=== PATIENT | female | born 1955 | race Caucasian/White ===

== ENCOUNTER 2017-10-13 09:19 | Emergency (ER) | payer MEDICARE ==
[~2017-10-13] VITALS: Ht 167.6 cm; Wt 119.8 kg
[~2017-10-13 09:19] MED LIST: CYCL10 PO; INSDET100 SC; INSUASPI SC; INSULANPEN SC; METF500 PO; NAPR500 PO; OXYACE5T PO; RXCYCL10 PO
[2017-10-13 10:24] LABS: BASOPHILS ABSOLUTE AUTO 0.07 K/mm3 (0.00-0.23); BASOPHILS PERCENT AUTO 1 % (0-2); EOSINOPHILS ABSOLUTE AUTO 0.07 K/mm3 (0.00-0.68); EOSINOPHILS PERCENT AUTO 1 % (0-6); Hematocrit 45.9 % (33.0-51.0); Hemoglobin 14.9 g/dL (11.5-16.0); IMMATURE GRAN ABSOLUTE AUTO 0.02 K/mm3 (0.00-0.10); IMMATURE GRAN PERCENT AUTO 0 % (0-1); LYMPHOCYTES ABSOLUTE AUTO 1.29 K/mm3 (0.84-5.20); LYMPHOCYTES PERCENT AUTO 17 % (21-46); MONOCYTES ABSOLUTE AUTO 0.87 K/mm3 (0.16-1.47); MONOCYTES PERCENT AUTO 11 % (4-13); Mean Corpuscular HGB 28.9 pg (26.0-34.0); Mean Corpuscular HGB Conc 32.5 g/dL (31.5-36.5); Mean Corpuscular Volume 89 fL (80-100); Mean Platelet Volume 10.9 fL (9.1-12.4); NEUTROPHILS ABSOLUTE AUTO 5.39 K/mm3 (1.96-9.15); NEUTROPHILS PERCENT AUTO 70 % (41-73); Platelet Count 220 K/mm3 (150-400); RDW Coefficient Variation 12.9 % (11.7-14.2); RDW Standard Deviation 42.3 fL (35.1-46.3); Red Blood Cell Count 5.15 M/mm3 (3.80-5.20); White Blood Cell Count 7.71 K/mm3 (4.00-11.30)
[2017-10-13 10:49] LABS: Alanine Aminotransfer (ALT/SGP 28 U/L (12-78); Albumin, Blood 3.1 g/dL (3.4-5.0); Albumin/Globulin Ratio 0.7 (0.8-1.8); Alk Phos 100 U/L (50-136); Anion Gap 9 mmol/L (6-16); Aspartate Aminotrans (AST/SGOT 32 U/L (12-37); Bilirubin, Total 0.6 mg/dL (0.1-1.0); Blood Urea Nitrogen 14 mg/dL (8-24); Bun/Creatinine Ratio 27.3 (12.0-20.0); CO2, Blood 25 mmol/L (21-32); Calcium, Blood 8.3 mg/dL (8.5-10.1); Chloride, Blood 99 mmol/L (98-108); Creatinine, Blood 0.51 mg/dL (0.40-1.00); Globulin, Blood 4.3 g/dL (2.2-4.0); Glomerular Filtration Rate >60 (60-); Glucose, Blood 310 mg/dL (70-99); Potassium, Blood 4.6 mmol/L (3.5-5.5); Sodium, Blood 133 mmol/L (136-145); Total Protein, Blood 7.4 g/dL (6.4-8.2); Troponin I <0.015 ng/mL (0.000-0.040)
[2017-10-13] MEDS ORDERED: Duoneb 2.5-0.5 M3 ML INH (13:23)
[2017-10-13] MEDS ORDERED: METPRE4DP PO (13:23)
== END 2017-10-13 13:43 | disposition home or self-care (01) ==
LOC: ER 09:19
PROVIDERS: Emergency Medicine
DX: J45.901 Unspecified asthma with (acute) exacerbation (principal); B34.9 Viral infection, unspecified; E11.9 Type 2 diabetes mellitus without complications; Z88.5 Allergy status to narcotic agent; Z79.899 Other long term (current) drug therapy; Z79.4 Long term (current) use of insulin
CPT/HCPCS: 36415; 71046; 80053; 83880; 84484; 85025; 93005; 93010; 94640; 96374; 99284; J2930

== ENCOUNTER → 2020-04-01 | Outpatient (CLI) | payer MEDICARE ==
[~2020-04-01] MED LIST changes: +Duoneb 2.5-0.5 M3 ML INH; +METPRE4DP PO
== END ==
LOC: PLD 08:05 → LAB SHORT 08:05
DX: L57.0 Actinic keratosis (principal)
CPT/HCPCS: 88305

== ENCOUNTER 2020-08-18 09:12 | Inpatient (IN) | payer MEDICARE ==
[~2020-08-18] VITALS: Ht 167.6 cm; Wt 119.8 kg
[2020-08-18] MEDS ORDERED: LISI20 PO (09:34)
[2020-08-18] MEDS ORDERED: HUMALOG100 UNIT/1 SC (09:35)
[2020-08-18] MEDS ORDERED: VENL75ER PO (09:36)
[2020-08-18] MEDS ORDERED: Aspirin EC81 MG PO (09:37)
[2020-08-18] MEDS ORDERED: BYDUREON B2 MG/0.81 SC (09:37)
[2020-08-18] MEDS ORDERED: Pravachol40 MG PO (09:38)
[2020-08-18 10:06] LABS: BASOPHILS ABSOLUTE AUTO 0.12 K/mm3 (0.00-0.23); BASOPHILS PERCENT AUTO 1 % (0-2); EOSINOPHILS ABSOLUTE AUTO 0.33 K/mm3 (0.00-0.68); EOSINOPHILS PERCENT AUTO 4 % (0-6); Hematocrit 42.6 % (33.0-51.0); Hemoglobin 13.5 g/dL (11.5-16.0); IMMATURE GRAN ABSOLUTE AUTO 0.02 K/mm3 (0.00-0.10); IMMATURE GRAN PERCENT AUTO 0 % (0-1); LYMPHOCYTES ABSOLUTE AUTO 3.13 K/mm3 (0.84-5.20); LYMPHOCYTES PERCENT AUTO 35 % (21-46); MONOCYTES ABSOLUTE AUTO 0.62 K/mm3 (0.16-1.47); MONOCYTES PERCENT AUTO 7 % (4-13); Mean Corpuscular HGB 29.5 pg (26.0-34.0); Mean Corpuscular HGB Conc 31.7 g/dL (31.5-36.5); Mean Corpuscular Volume 93 fL (80-100); Mean Platelet Volume 10.8 fL (9.1-12.4); NEUTROPHILS ABSOLUTE AUTO 4.73 K/mm3 (1.96-9.15); NEUTROPHILS PERCENT AUTO 53 % (41-73); Platelet Count 258 K/mm3 (150-400); RDW Coefficient Variation 12.6 % (11.7-14.2); Red Blood Cell Count 4.58 M/mm3 (3.80-5.20); White Blood Cell Count 8.95 K/mm3 (4.00-11.30)
[2020-08-18 10:29] LABS: Alanine Aminotransfer (ALT/SGP 37 U/L (12-78); Albumin, Blood 2.7 g/dL (3.4-5.0); Albumin/Globulin Ratio 0.7 (0.8-1.8); Alk Phos 94 U/L (50-136); Anion Gap 4 mmol/L (6-16); Aspartate Aminotrans (AST/SGOT 28 U/L (12-37); Bilirubin, Total 0.2 mg/dL (0.1-1.0); Blood Urea Nitrogen 26 mg/dL (8-24); Bun/Creatinine Ratio 33.9 (12.0-20.0); CO2, Blood 30 mmol/L (21-32); Calcium, Blood 8.2 mg/dL (8.5-10.1); Chloride, Blood 106 mmol/L (98-108); Creatinine, Blood 0.77 mg/dL (0.40-1.00); Globulin, Blood 3.8 g/dL (2.2-4.0); Glomerular Filtration Rate >60 (60-); Glucose, Blood 108 mg/dL (70-99); Potassium, Blood 4.5 mmol/L (3.5-5.5); Sodium, Blood 140 mmol/L (136-145); Total Protein, Blood 6.5 g/dL (6.4-8.2); Troponin I <0.015 ng/mL (0.000-0.040)
[2020-08-18] MEDS ORDERED: BASAGLAR K100 UNIT/1 SC (14:22)
[2020-08-18] MEDS ORDERED: IPRAT-ALBUT 0.5-3 ML INH (14:46)
[2020-08-18] MEDS ORDERED: NEURONTIN600 MG PO (16:39)
--- NOTE | 2020-08-18 17:27 | NUR ---
Echocardiogram completed.
--- NOTE | 2020-08-18 18:50 | NUR ---
PT A&O. PT CAME TO FLOOR THIS AFTERNOON FROM ER. PT IS ABLE TO MAKE NEEDS KNOWN. PT CAN TRANSFER SELF FROM BED TO W/C. PT HAD A BKA IN 2014 AND WHEN WEARING PROSTHETIC SHE CAN WALK BUT LEANS ON FUNTURE. LEFT ARM DRIFT, NO OTHER NEURO DEFECIT NOTED. PT HAD AN ELEVATED BP, NOTIFED , IV LOPRESSOR ORDERED AND GIVEN. TELE SR 84. PT ORIENTED TO ROOM AND CALL LIGHT W/IN REACH.
--- NOTE | 2020-08-19 01:17 | NUR ---
patient blood sugar usually covered by 30 units at HS. None ordered. Call placed to hospitalist. awaiting return phone call
--- NOTE | 2020-08-19 04:35 | NUR ---
Patient slept intermittantly through night. No complaints of discomfort with exception of very mild LUQ pain that dissipated without tx. Patient independent in room with use of her personal scooter. She does have mild left upper extremity weakness, and decreased ROM in that extremity. Speech clear, face symetrical A&OX4. NEW ORDER FOR SEMGLEE 30MG AT HS.
[2020-08-19 05:42] LABS: Hematocrit 39.5 % (33.0-51.0); Hemoglobin 12.3 g/dL (11.5-16.0); Mean Corpuscular HGB 29.1 pg (26.0-34.0); Mean Corpuscular HGB Conc 31.1 g/dL (31.5-36.5); Mean Corpuscular Volume 94 fL (80-100); Mean Platelet Volume 11.2 fL (9.1-12.4); Platelet Count 252 K/mm3 (150-400); RDW Coefficient Variation 12.7 % (11.7-14.2); RDW Standard Deviation 43.7 fL (35.1-46.3); Red Blood Cell Count 4.22 M/mm3 (3.80-5.20); White Blood Cell Count 9.01 K/mm3 (4.00-11.30)
[2020-08-19 06:05] LABS: Anion Gap 5 mmol/L (6-16); Blood Urea Nitrogen 24 mg/dL (8-24); Bun/Creatinine Ratio 31.2 (12.0-20.0); CHOL/HDL RATIO 3.8; CO2, Blood 29 mmol/L (21-32); Calcium, Blood 8.1 mg/dL (8.5-10.1); Chloride, Blood 107 mmol/L (98-108); Cholesterol 157 mg/dL (50-200); Creatinine, Blood 0.77 mg/dL (0.40-1.00); Glomerular Filtration Rate >60 (60-); Glucose, Blood 198 mg/dL (70-99); HDL Cholesterol 41 mg/dL (>39); Low Density Lipoprotein Chol 82 mg/dL (0-110); Magnesium, Blood 2.2 mg/dL (1.6-2.4); Potassium, Blood 4.3 mmol/L (3.5-5.5); Sodium, Blood 141 mmol/L (136-145); Triglycerides 169 mg/dL (30-160); Very Low Density Lipoprot Chol 33 mg/dL (6-32)
[2020-08-19] MEDS ORDERED: ATOR80 PO (10:58)
[2020-08-19] MEDS ORDERED: CLOP75 PO (10:59)
--- NOTE | 2020-08-19 11:28 | NUR ---
DISCHARGE INSTRUCTIONS- DISCHARGE INSTRUCTIONS REVIEWED WITH PT. IV DC'D ITNACT. PT ANXIOUS TO GO HOME. PT REPORTS BEING BACK TO BASELINE. RX FAXED TO [facility] APPT MADE WITH PCP AND ATTEMPTED TO CALLED DR [facility], MESSAGE LEFT WITH NO RETURN CALL. PT REPORTS SHE WILL CALL AND GET AN APPT. PT DC'D HOME WITH GRAND DAUGHTER AT 1125. [facility].
== END 2020-08-19 11:26 | disposition home or self-care (01) | DRG 65 ==
LOC: ER 09:12 → MEDS 14:20
PROVIDERS: Nurse Practitioner Acute Care; Physician Assistant; ADMIT Internal Medicine
PROC: 3E0234Z Introduction of Serum, Toxoid and Vaccine into Muscle, Percutaneous Approach (ICD-10-PCS; principal; 2020-08-18)
DX: I63.9 Cerebral infarction, unspecified (principal); G81.94 Hemiplegia, unspecified affecting left nondominant side; Z68.41 Body mass index [BMI] 40.0-44.9, adult; Z23 Encounter for immunization; E66.01 Morbid (severe) obesity due to excess calories; E11.9 Type 2 diabetes mellitus without complications; I65.21 Occlusion and stenosis of right carotid artery; I10 Essential (primary) hypertension; J45.20 Mild intermittent asthma, uncomplicated; F32.9 Major depressive disorder, single episode, unspecified; E78.2 Mixed hyperlipidemia; M19.90 Unspecified osteoarthritis, unspecified site; Z79.4 Long term (current) use of insulin; Z79.82 Long term (current) use of aspirin; Z89.511 Acquired absence of right leg below knee
CPT/HCPCS: 36415; 70450; 70551; 80048; 80053; 80061; 82947; 83036; 83735; 84484; 85025; 85027; 93005; 93010; 93306; 93880; 97161; 97165; 97530; 99285-25; A9270; Q2038

== ENCOUNTER 2021-09-11 18:59 | Emergency (ER) | payer MEDICARE ==
[~2021-09-11] VITALS: Ht 165.1 cm; Wt 117.5 kg
[~2021-09-11 18:59] MED LIST changes: +ATOR80 PO; +Aspirin EC81 MG PO; +BASAGLAR K100 UNIT/1 SC; +BYDUREON B2 MG/0.81 SC; +CLOP75 PO; +HUMALOG100 UNIT/1 SC; +IPRAT-ALBUT 0.5-3 ML INH; +LISI20 PO; +NEURONTIN600 MG PO; +Pravachol40 MG PO; +VENL75ER PO
[2021-09-11] MEDS ORDERED: Tobramycin-Dexam5 ML LEFTEYE (19:58)
[2021-09-11] MEDS ORDERED: ALBU8HFA2 INH (19:58)
[2021-09-11] MEDS ORDERED: AMLO5 PO (19:59)
[2021-09-11 20:23] LABS: BASOPHILS ABSOLUTE AUTO 0.12 K/mm3 (0.00-0.23); BASOPHILS PERCENT AUTO 1 % (0-2); EOSINOPHILS ABSOLUTE AUTO 0.36 K/mm3 (0.00-0.68); EOSINOPHILS PERCENT AUTO 3 % (0-6); Hematocrit 41.5 % (33.0-51.0); Hemoglobin 13.1 g/dL (11.5-16.0); IMMATURE GRAN ABSOLUTE AUTO 0.04 K/mm3 (0.00-0.10); IMMATURE GRAN PERCENT AUTO 0 % (0-1); LYMPHOCYTES ABSOLUTE AUTO 3.55 K/mm3 (0.84-5.20); LYMPHOCYTES PERCENT AUTO 33 % (21-46); MONOCYTES PERCENT AUTO 6 % (4-13); Mean Corpuscular HGB 29.2 pg (26.0-34.0); Mean Corpuscular HGB Conc 31.6 g/dL (31.5-36.5); Mean Corpuscular Volume 93 fL (80-100); Mean Platelet Volume 10.7 fL (9.1-12.4); NEUTROPHILS ABSOLUTE AUTO 6.05 K/mm3 (1.96-9.15); NEUTROPHILS PERCENT AUTO 56 % (41-73); Platelet Count 302 K/mm3 (150-400); RDW Coefficient Variation 13.4 % (11.7-14.2); RDW Standard Deviation 45.7 fL (35.1-46.3); Red Blood Cell Count 4.48 M/mm3 (3.80-5.20); White Blood Cell Count 10.72 K/mm3 (4.00-11.30)
[2021-09-11 20:38] LABS: Albumin, Blood 2.4 g/dL (3.4-5.0); Albumin/Globulin Ratio 0.6 (0.8-1.8); Bilirubin, Total 0.1 mg/dL (0.1-1.0); Bun/Creatinine Ratio 19.7 (12.0-20.0); Calcium, Blood 8.2 mg/dL (8.5-10.1); Creatinine, Blood 1.17 mg/dL (0.40-1.00); Globulin, Blood 3.9 g/dL (2.2-4.0); Potassium, Blood 5.1 mmol/L (3.5-5.5); Total Protein, Blood 6.3 g/dL (6.4-8.2)
[2021-09-11] MEDS ORDERED: Voltaren100 GM TOP (22:17)
== END 2021-09-11 22:40 | disposition home or self-care (01) ==
LOC: ER 18:59
PROVIDERS: Emergency Medicine
DX: M25.512 Pain in left shoulder (principal); I10 Essential (primary) hypertension; E11.9 Type 2 diabetes mellitus without complications; E78.5 Hyperlipidemia, unspecified; E66.9 Obesity, unspecified; J45.909 Unspecified asthma, uncomplicated; M19.90 Unspecified osteoarthritis, unspecified site; Z88.5 Allergy status to narcotic agent; Z79.4 Long term (current) use of insulin; Z79.82 Long term (current) use of aspirin; Z79.84 Long term (current) use of oral hypoglycemic drugs; Z79.899 Other long term (current) drug therapy
CPT/HCPCS: 36415; 80053; 85025; 93005; 93010; 99285-25

== ENCOUNTER 2022-01-08 19:15 | Inpatient (IN) | payer MEDICARE ==
[~2022-01-08] VITALS: Ht 167.6 cm; Wt 118.5 kg
[~2022-01-08 19:15] MED LIST changes: +ALBU8HFA2 INH; +AMLO5 PO; +GABA300 PO; -NEURONTIN600 MG PO; +Tobramycin-Dexam5 ML LEFTEYE; +Voltaren100 GM TOP
[2022-01-08 20:20] LABS: BASOPHILS ABSOLUTE AUTO 0.19 K/mm3 (0.00-0.23); BASOPHILS PERCENT AUTO 2 % (0-2); EOSINOPHILS ABSOLUTE AUTO 0.44 K/mm3 (0.00-0.68); EOSINOPHILS PERCENT AUTO 4 % (0-6); Hematocrit 39.9 % (33.0-51.0); Hemoglobin 12.6 g/dL (11.5-16.0); IMMATURE GRAN ABSOLUTE AUTO 0.04 K/mm3 (0.00-0.10); IMMATURE GRAN PERCENT AUTO 0 % (0-1); LYMPHOCYTES ABSOLUTE AUTO 3.04 K/mm3 (0.84-5.20); LYMPHOCYTES PERCENT AUTO 24 % (21-46); MONOCYTES ABSOLUTE AUTO 0.78 K/mm3 (0.16-1.47); MONOCYTES PERCENT AUTO 6 % (4-13); Mean Corpuscular HGB 29.9 pg (26.0-34.0); Mean Corpuscular HGB Conc 31.6 g/dL (31.5-36.5); Mean Corpuscular Volume 95 fL (80-100); Mean Platelet Volume 10.7 fL (9.1-12.4); NEUTROPHILS ABSOLUTE AUTO 8.02 K/mm3 (1.96-9.15); NEUTROPHILS PERCENT AUTO 64 % (41-73); Platelet Count 321 K/mm3 (150-400); RDW Standard Deviation 48.5 fL (35.1-46.3); Red Blood Cell Count 4.22 M/mm3 (3.80-5.20); White Blood Cell Count 12.51 K/mm3 (4.00-11.30)
[2022-01-08 20:38] LABS: Albumin, Blood 2.1 g/dL (3.4-5.0); Albumin/Globulin Ratio 0.5 (0.8-1.8); Bilirubin, Total 0.2 mg/dL (0.1-1.0); Bun/Creatinine Ratio 12.6 (12.0-20.0); Calcium, Blood 8.3 mg/dL (8.5-10.1); Creatinine, Blood 1.27 mg/dL (0.40-1.00); Globulin, Blood 4.2 g/dL (2.2-4.0); Potassium, Blood 4.3 mmol/L (3.5-5.5); Total Protein, Blood 6.3 g/dL (6.4-8.2)
[2022-01-08] MEDS ORDERED: ZESTRIL40 M1 PO (21:12)
[2022-01-08] MEDS ORDERED: JARDIANCE25 MG PO (21:13)
[2022-01-08] MEDS ORDERED: METFORMIN HCL500 M3 PO (21:13)
[2022-01-08 21:21] LABS: Source, Urine Clean Catch
[2022-01-08 21:28] LABS: Appearance, Urine Clear (Clear); Bilirubin, Urine Neg (Neg); Blood, Urine 2+ (Neg); Color, Urine Yellow (P-Yellow); Glucose Qualitative, Urine 3+ (Neg); Ketones, Urine Neg (Neg); Leukocyte Esterase, Urine Neg (Neg); Nitrite, Urine Neg (Neg); Protein, Urine 4+ (Neg); Urobilinogen, Urine NORM (Normal)
[2022-01-08 21:38] LABS: Amorphous Light (0-Heavy); Bacteria Few /hpf; Squamous Epithelial Cells Few /hpf (Few)
[2022-01-08 23:21] LABS: International Normalized Ratio 0.94; Prothrombin Time Results 9.9 Sec (9.7-11.5)
--- NOTE | 2022-01-09 00:31 | NUR ---
PT ARRIVES FROM ED AT 2350. PT ABLE TO WALK TO BED WITH 1 PERSON ASSISTANCE. DAUGHTER AND GRANDDAUGHTER WITH PT UPON ARRIVIAL. CALL LIGHT WITHIN REACH, BED LOW AND LOCKED
--- NOTE | 2022-01-09 01:23 | NUR ---
UPON ADMISSION PT BP WAS 232/115. HYDRALAZINE GIVEN. REASSESSED AT 113 AND BP WAS 205/70.
--- NOTE | 2022-01-09 06:46 | NUR ---
PT IS ALERT, ORIENTED TO PLACE, SELF AND SITUATION ONLY, UNABLE TO STATE CORRECT DAY OR MONTH. 1 PERSON ASSIST TO BR USING PERSONAL SCOOTER. RIGHT BKA, HAS DEVICE IN ROOM. ARRIVES FROM THE ED TO THE FLOOR DURING THE NIGHT FOR A RECENT CVA, LKW WAS 6/2. BP ELEVATED SBP >180, PRN HYDRALAZINE GIVEN. PT RESTS 5+ HOURS. PLEASANT WITH CARES. AT 0600 PT WOKE AND WAS CONFUSED, UNABLE TO STATE WHY THEY WERE HERE, REQUIRED PROMPTING WHEN ASKED DATE AND SITUATION. NO COMPLAINTS OF TIWARI OR OTHER PAIN. WILL CONTINUE TO MONITOR PT AND GIVE REPORT TO ONCOMING NURSE
--- NOTE | 2022-01-09 18:27 | NUR ---
SHIFT SUMMARY: PT LETHARGIC, ORIENTED TO SELF, PLACE, YEAR THIS MORNING. MENTATION SEEMS TO IMPROVE T/OUT DAY WITH PT ABLE TO RECALL WHY SHE IS IN HOSPITAL WELL HER MEDICAL HISTORY. PT SHIVERS OCCASIONALLY, REPORTS FEELING "CHILLED", MILD L SIDE WEAKNESS NOTED. PT MAINTAINS O2 SATS >95% WHILE AWAKE, DESATS DURING SLEEP, O2 AT 2L/MIN VIA NC. SR ON MONITOR. HTN CONTINUES T/OUT DAY DESPITE PRN HYDRALAZINE, DR STOCKTON NOTIFIED, NEW ORDERS PLACED AND PT MEDICATED. ECHO COMPLETED TODAY AT BEDSIDE. CURRENTLY, PT RESTING QUIETLY IN ROOM W/FAMILY AT BEDSIDE. WILL CONTINUE TO MONITOR AND TREAT ACCORDINGLY UNTIL CHANGE OF SHIFT.
--- NOTE | 2022-01-09 21:32 | NUR ---
Assumed care 1900: VSS on RA, elevated BP and scheduled meds given. Cbg 232, long acting insulin given. Will continue to monitor.
--- NOTE | 2022-01-09 23:29 | NUR ---
SBP >180, PRN HYDRALAZINE GIVEN PO.
--- NOTE | 2022-01-10 03:44 | NUR ---
SBP remains above 180 even after the prn PO MD yogi notified. Order added for lobetalol prn, will give once pharmacy verifies.
--- NOTE | 2022-01-10 04:35 | NUR ---
Professional Athlete Note: Pt oriented x 2-3, disoriented to situation. VSS on RA, pt SBP elevated overnight. PRN hydralazine PO given x1 and Labetalol IV given x1 with some effect. Pt slept well overnight. Some residual left sided weakness from stroke in August 2020. CBG 232, long acting insulin given per orders.
[2022-01-10 05:40] LABS: Bun/Creatinine Ratio 14.5 (12.0-20.0); Calcium, Blood 8.2 mg/dL (8.5-10.1); Creatinine, Blood 1.86 mg/dL (0.40-1.00); Potassium, Blood 4.8 mmol/L (3.5-5.5)
--- NOTE | 2022-01-10 18:01 | NUR ---
SHIFT SUMMARY: PT SLEEPS OFTEN TODAY, ORIENTED x2-3, CONTINUES DISORIENTED TO SITUATION. O2 SATS MAINTAINED >92% ON RA EVEN WHILE SLEEPING. SR ON MONITOR. ONE PRN DOSE HYDRALAZINE GIVEN, SBP TRENDS DOWN T/OUT DAY. FAMILY AT BEDSIDE, UPDATED ON PT CONDITION AND PLAN OF CARE, ALL QUESTIONS ANSWERED. PT CONTINENT AND ABLE TO VERBALIZE NEEDS R/T TOILETING, SBA TO BSC, TOLERATING WELL. PT WITH MINIMAL PO TAKE FOR BREAKFAST AND LUNCH, CURRENTLY ALERT AND EATING DINNER TRAY. WILL CONTINUE TO MONITOR AND TREAT ACCORDINGLY UNTIL CHANGE OF SHIFT.
--- NOTE | 2022-01-10 20:47 | NUR ---
Assumed care 1899. VSS on RA. Tele: SR 70s. Pt pretty sleepy/drowsy, but wakes up easily when you talk with her. Took meds whole w/ water no issues. CBG low 200s, glargine given per order. Right AC PIV flushing well.
--- NOTE | 2022-01-10 21:15 | NUR ---
Report given to Nicole ERAZO, pt will be transferred to medical floor.
[2022-01-11 08:29] LABS: Bun/Creatinine Ratio 18.2 (12.0-20.0); Calcium, Blood 8.2 mg/dL (8.5-10.1); Creatinine, Blood 1.7 mg/dL (0.40-1.00); Potassium, Blood 4.9 mmol/L (3.5-5.5)
--- NOTE | 2022-01-11 19:28 | NUR ---
SHIFT SUMMARY PATIENT VERY SLEEPY T/O SHIFT ONLY WAKING TO VERBAL STIMULI. FAMILY AT BEDSIDE MOST OF SHIFT. PUREWICK IN PLACE TO SUCTION. NOTED REDNESS/YEAST UNDER PANNUS. MEDICATED PER OCT. ELEVATED BP, MEDICATED PER OCT. OTHER VITAL SIGNS STABLE. PT HAD BRIEF EMOTIONAL EPISODE WHEN ASKING FAMILY FOR AND REALIZING HE HAD PASSED 10 YRS AGO. REPORT GIVEN TO ONCOMING RN,
--- NOTE | 2022-01-12 05:57 | NUR ---
SHIFT SUMMARY A/O 2-3, FORGETFUL. DENIES PAIN OR SOB. CONT/INCONT, ATTENDS AND PUREWICK IN PLACE. R. BKA. VSS, NO ACUTE CHANGES AT THIS TIME. BED IN LOWEST POSITION WITH CALL LIGHT IN REACH. WILL CONTINUE TO MONITOR AND REPORT TO ONCOMING RN.
[2022-01-12 06:41] LABS: Bun/Creatinine Ratio 23.2 (12.0-20.0); Calcium, Blood 8.3 mg/dL (8.5-10.1); Creatinine, Blood 1.77 mg/dL (0.40-1.00); Potassium, Blood 5.2 mmol/L (3.5-5.5)
--- NOTE | 2022-01-12 10:29 | NUR ---
MD CALL PT SITTING OUT IN THE CHAIR (PT HELPED HER). SLOUCHED, SHE WAS ABLE TO MUTTER VERY QUIETLY HER NAME, BUT NO OTHER VERBAL RESPONSES. NOT TAKING A DEEP BREATH WHEN I ASKED HER TO, NOT SMILING WHEN I ASKED HER. SHE DID MOVE HER RIGHT THUMB WHEN I ASKED HER TO SQUEEZE MY HANDS, DID NOT MOVE THE LEFT HAND AT ALL OR THE LEFT LEG. NOT TRACKING MY FINGER WHEN PROMPTED. HER COUSIN IS IN THE ROOM WITH HER AND SAID THAT THESE ARE NEW CHANGES, THAT SHE IS NOT RESPONSIVE SHE HAS BEEN. I CALLED AND SPOKE WITH DR STOCKTON WHO SAID THAT SHE CAN BE SLOW TO RESPOND AND CAN SOMETIMES BECOME MORE RESPONSIVE AFTER A WHILE, TO REASSESS HER IN 15 MINS.
--- NOTE | 2022-01-12 11:17 | NUR ---
REASSESSMENT WORKED WITH THERAPIST TO GET PT BACK INTO BED. PT WAS MORE VERBAL, MOVING MORE AT THIS TIME. HEAVY TRANSFER, BUT PT STATING SOME CLEAR WORDS AND MOVING BOTH ARMS, ABLE TO PUT SOME WT ON HER FOOT TO PIVOT.
--- NOTE | 2022-01-12 19:03 | NUR ---
SHIFT SUMMARY SEE THIS AM NOTE FOR DETAILS OF CHANGE IN MENTAL STATUS THAT HAPPENED THIS MORNING. AFTER THAT EVENT MS CAI HAS BEEN MORE RESPONSIVE, BUT IS INCONSISTANT IN HER RESPONSIVENESS. HER FAMILY HAS BEEN WITH HER ALL DAY AND THEY TOLD ME THAT SHE HAS BEEN ENGAGED WITH THEM ON AND OFF THROUGHOUT THE REST OF THE DAY. ON TELEMETRY - SR PER LAST POSTED STRIP AND NO CALLS FROM MOSAIC TECHNICIAN TODAY. NO SOB OR RESP DISTRESS ON ROOM AIR. C/O LEFT ARM TENDERNESS ON MOVEMENT, NO BLOOD PRESSURES IN LEFT ARM. SKIN RED RASH UNDER BREASTS AND PANIS - CLEANSED AND CREAM APPLIED PRESCRIBED. BED LOW, CALL LIGHT IN REACH.
--- NOTE | 2022-01-13 02:14 | NUR ---
PT AWAKE, DENIES REQUESTS. PT REPORTS SHE IS COMFORTABLE, REFUSING REPOSITIONING. CALL LIGHT WITHIN REACH. BED IN LOW POSITION. FLUIDS AT BEDSIDE.
[2022-01-13 06:09] LABS: Bun/Creatinine Ratio 26.9 (12.0-20.0); Calcium, Blood 8.4 mg/dL (8.5-10.1); Creatinine, Blood 1.82 mg/dL (0.40-1.00); Potassium, Blood 5.7 mmol/L (3.5-5.5)
--- NOTE | 2022-01-13 07:25 | NUR ---
SHIFT SUMMARY - NO ACUTE CHANGES THROUGHOUT THIS SHIFT. NO CHANGES FOR NEURO CHECKS FROM BEGINNING OF THE SHIFT ASSESSMENT. PT TOLERATED PO FLUIDS/PILLS WITHOUT COMPLICATIONS - HOB ELEVATED. PT HAS BEEN SLEEPING THROUGHOUT MOST OF THE NIGHT - PT AWAKENS EASILY TO VERBAL COMMUNICATION. PT DENIED ANY PAIN THROUGHOUT THE NIGHT. PT HAS BEEN RESPONDING APPROPRIATELY TO QUESTIONS ASKED. FLUIDS AT BEDSIDE. CALL LIGHT WITHIN REACH. BED IN LOW POSITION.
[2022-01-13 12:37] LABS: Bun/Creatinine Ratio 24.9 (12.0-20.0); Calcium, Blood 8.4 mg/dL (8.5-10.1); Creatinine, Blood 1.77 mg/dL (0.40-1.00); Potassium, Blood 5.2 mmol/L (3.5-5.5)
--- NOTE | 2022-01-13 18:57 | NUR ---
SHFIT SUMMARY 66 Y MALE ADMITTED FOR CVA. PT HAS HAD L SIDED WEAKNESS THAT IS IMPROVING. PT WORKED WITH PT AND OT AND TOLERATED WELL. PT DOES HAVE MX AREAS OF REDNESS IN PANNUS, SKIN FOLDS AND UNDER BREAST. FAMILY HAS BEEN PRESENT T/O DAY. PT IS ALERT AND ORIENTED TO SELF AND FAMILY. SHE DOES APPEAR TO HAVE SOME EXPRESSIVE APHASIA AND IS SLOW TO RESPOND. PT IS ABLE TO FOLLOW DIRECTIONS BUT IS SLOW. D/C PLANS INCLUDE SNF PALCEMENT
[2022-01-14 06:16] LABS: Bun/Creatinine Ratio 28.1 (12.0-20.0); Calcium, Blood 8.7 mg/dL (8.5-10.1); Creatinine, Blood 1.6 mg/dL (0.40-1.00); Potassium, Blood 5.2 mmol/L (3.5-5.5)
--- NOTE | 2022-01-14 08:04 | NUR ---
PT ALERT TO SELF AND PLACE, VERY SLOW TO RESPOND AND AT TIMES HAS A HARD TIME FINDING WORDS. NO NEW CONCERNS OVERNIGHT.
--- NOTE | 2022-01-14 08:07 | NUR ---
PT ALERT TO SELF AND PLACE. PRIOR TO PT BEING TRANSFERED PER REPORT PT HAD PULLED SOME OF THE CATH OUT. CAN INSPECTOR TO ASSESS PRIOR TO PT TRASNFERING TO MEDICAL. PT MONITORED FREQUENTLY HOWEVER NOTED TO HAVE PULLED HALF OF THE DRESSING OFF WHILE ON MEDICAL FLOOR. LINE UNCHANGED FROM PREVIOUS ASSESSMENT. DUE TO HIGH RISK OF PT PULLING PERMA CATH RESTRAINTS ORDERED PER MD. PT BLOOD GUCOSE 86 AT 0420. INCONTINENT OF URINE X1. NO NEW CHANGES NOTED THIS SHIFT.
--- NOTE | 2022-01-14 19:22 | NUR ---
SHIFT SUMMARY PATIENT A&O TO SELF AND FAMILY. PATIENT FLAT AFFECT AND SLOW TO RESPOND. FAMILY AT BEDSIDE MOST OF SHIFT. PT WORKED WITH PATIENT THIS AM AND GOT HER UP TO CHAIR. ATTEMPTED TO GET PATIENT INTO SHOWER. UNABLE TO GET OVER STEP AND BED BATH DONE INSTEAD. RED, YEAST RASH UNDER BREASTS/PANNUS, MEDICATED CREAM APPLIED PER OCT. ELEVATED BP, MEDICATED PER OCT. PUREWICK IN PLACE AND DRAINING TO SUCTION. REPORT GIVEN TO ONCOMING RN.
--- NOTE | 2022-01-15 08:43 | NUR ---
PT ABLE TO REST OVERNIGHT. TURNED Q2H TO BEST OF STAFF AVAILABILITY PER FAMILY REQUEST. NO NEW CONCERNS OVERNIGHT.
--- NOTE | 2022-01-15 18:34 | NUR ---
SHIFT SUMMARY PATIENT A&O TO SELF AND FAMILY. SAT UP ON EDGE OF BED FOR ALL MEALS. RED/YEAST RASH UNDER PANNUS/BREAST, NYSTATIN CREAM APPLIED. IV AND TELE D/C'D TODAY. PUREWICK IN PLACE TO SUCTION. NO SIGNIFICANT EVENTS T/O SHIFT. WILL CONTINUE TO MONITOR.
--- NOTE | 2022-01-16 07:34 | NUR ---
PT WITH NO COMPLAINS OVENIGHT. ABLE TO STAND PIVOT TO COMMODE. BLOOD GLUCOSE MONITORED. VOIDING WITHOUT DIFFICULTY.
--- NOTE | 2022-01-16 18:45 | NUR ---
SHIFT SUMMARY PATIENT A&O TO SELF AND FAMILY. PATIENT VERY SLEEPY TODAY SLEEPING MOST OF AFTERNOON. FAMILY AT BEDSIDE T/O SHIFT. NO SIGNIFICANT EVENTS. WILL CONTINUE TO MONITOR.
[2022-01-17 04:29] LABS: Hematocrit 33.7 % (33.0-51.0); Hemoglobin 10.5 g/dL (11.5-16.0); Mean Corpuscular HGB 29.2 pg (26.0-34.0); Mean Corpuscular HGB Conc 31.2 g/dL (31.5-36.5); Mean Corpuscular Volume 94 fL (80-100); Mean Platelet Volume 11.2 fL (9.1-12.4); Platelet Count 318 K/mm3 (150-400); RDW Coefficient Variation 13.4 % (11.7-14.2); RDW Standard Deviation 45.9 fL (35.1-46.3); White Blood Cell Count 10.37 K/mm3 (4.00-11.30)
[2022-01-17 04:55] LABS: Bun/Creatinine Ratio 30.6 (12.0-20.0); Calcium, Blood 8.7 mg/dL (8.5-10.1); Creatinine, Blood 1.6 mg/dL (0.40-1.00); Potassium, Blood 5.3 mmol/L (3.5-5.5)
--- NOTE | 2022-01-17 19:05 | NUR ---
PATIENT A/O TO SELF AND FAMILY ONLY. VSS, ON RA. UP TO CHAIR AND BSC THIS SHIFT. PURE WICK REMOVED AND PATIENT HAS BEEN CONTINENT. R BKA AND HAS PROSTHETIC, BUT R LEG HAS SOME SWELLING SO IT ISN'T FITTING WELL. FAMILY AT BEDSIDE FOR MOSET OF THE DAY. NYSTATIN CREAM APPLIED TO YEAST RASH IN FOLD. POOR APPEITE, BUT IS ABLE TO FEED HERSELF AFTER MMEAL SET UP. FALL PRECAUTIONS IN PLACE. REPORTS PAIN TO L ARM, DENIES NEED FOR PAIN MEDICATION. COOPERATIVE WITH CARE. NO NEW CONCERNS THIS SHIFT.
--- NOTE | 2022-01-18 17:37 | NUR ---
PATIENT AWAKE THIS AM AND WORKED WITH OT. UP IN CHAIR FOR MOST OF THE MORNING. ABLE TO TRANSFER WITH PROTHETIC LEG AND 1-2 ASSIST TO CHAIR/BSC. FAMILY AT BEDSIDE DURING THE DAY AT ALL TIMES AND ASSISTS WITH CARE. TOLERARING DIET, TAKES PILLS WELL WITH WATER. CONTINENT/INCONTINENT OF URINE. NYSTATIN ORDERED TO TREAT YEAST RASH TO ABDOMINAL FOLDS. AWAITING PLAN FOR DISCHARGE.
--- NOTE | 2022-01-19 01:00 | NUR ---
PT AWAKE RESTING QUIETLY IN BED. DENIES ANY REQUESTS. CALL LIGHT WITHIN REACH. BED IN LOW POSITION.
--- NOTE | 2022-01-19 06:33 | NUR ---
SHIFT SUMMARY - FAMILY WAS HERE AT THE BEGINNING OF THE SHIFT. PT WAS SITTING IN THE CHAIR X1, AND THEN BSC X1. PT WAS ABLE TO STAND AND PIVOT WITH SBA TO BED. NO ACUTE CHANGES THROUGHOUT THIS SHIFT. LS CLEAR WITH RHONCHI TO BILATERAL BASES. PT DENIED HEADACHE, CHEST PAIN, SOB, NAUSEA, OR NUMBNESS AND TINGLING. PT HAS A PROSTHETIC FOR HER R BKA THAT SHE WORE UNTIL APPX 8 PM LAST NOC - ONCE BACK TO BED THIS PROSTHETIC WAS REMOVED BY FAMILY. CALL LIGHT WITHIN REACH. BED IN LOW POSITION. FLUIDS AT BEDSIDE. WILL CONTINUE TO MONITOR UNTIL AM SHIFT CHANGE.
--- NOTE | 2022-01-19 19:30 | NUR ---
SHIFT SUMMARY- PT ALERT AND ORIENTED TO SELF AND FAMILY. PT PLEASENTLY CONFUSED, HER FAMILY REMAIN AT THE BEDSIDE TO REORIENT THE PT NEEDED AND THEY PROVIDE CARE FOR HER WELL. FAMILY ASSISTED THE PT TO GET A SHOWER TODAY, WITH THE HELP OF THERAPY AND THE [facility]. PT HAS YEAST IN HER PANNUS MEDICATING WITH NYSTATIN CREAM, ALSO SHE HAS YEAST IN THE LEFT ARM PIT, THIS WAS CLEANED AND DRIED AND MEDICATED WELL. PT HAD ONE EPISODE OF INCONTINENCE TODAY THAT REQUIRED A BED CHANGE. PT FAMILY KEEPS THE ATTENDS OFF T/O THE DAY AND THEY ASSIST HER WITH BATHROOM NEEDS. PT HAS MORE NIGHT TIME INCONTINENCE. NIGHT RN IS AWARE, PASSED ALL ON IN BEDSIDE REPORT. PT IN BED, CALL LIGHT IN REACH, BED IN LOW POSITION.
[2022-01-20 05:13] LABS: Hematocrit 32.5 % (33.0-51.0); Hemoglobin 10.1 g/dL (11.5-16.0); Mean Corpuscular HGB 29.6 pg (26.0-34.0); Mean Corpuscular HGB Conc 31.1 g/dL (31.5-36.5); Mean Corpuscular Volume 95 fL (80-100); Mean Platelet Volume 11.5 fL (9.1-12.4); Platelet Count 322 K/mm3 (150-400); RDW Coefficient Variation 13.4 % (11.7-14.2); RDW Standard Deviation 47.5 fL (35.1-46.3); Red Blood Cell Count 3.41 M/mm3 (3.80-5.20); White Blood Cell Count 8.13 K/mm3 (4.00-11.30)
--- NOTE | 2022-01-20 05:19 | NUR ---
PATIENT WITH VSS ON RA OVERNIGHT. sKIN INSPECTION REVEALS HEALING YEAST IN ABDOMINAL FOLDS. PATIENT INCONTINENT OF URINE OVERNIGHT. PATIENT SLEPT THE MAJORITY OF THE NIGHT. NO ACUTE ISSUES OVERNIGHT.
[2022-01-20 05:40] LABS: Bun/Creatinine Ratio 32.2 (12.0-20.0); Calcium, Blood 8.4 mg/dL (8.5-10.1); Creatinine, Blood 1.71 mg/dL (0.40-1.00); Potassium, Blood 5.3 mmol/L (3.5-5.5)
--- NOTE | 2022-01-20 20:06 | NUR ---
SHIFT SUMMARY- PT ALERT AND ORIENTED TO SELF AND FAMILY. PT FAMILY HAS REMAINED AT BEDSIDE T/O THE DAY ASSISTING THE PT WITH HER NEEDS T/O THE DAY. CURRENTLY THE PLAN IS SNF VS HOME HEALTH UPON DISCHARGE. FAMILY IS AWARE AND ARE PATINETLY AWAITING THE DECISION. BEDSIDE REPORT COMPLETED WITH NIGHT RN, NO S&S OF DISTRESS, FAMILY AT THE BEDSIDE AT THE TIME OF REPORT.
--- NOTE | 2022-01-21 04:23 | NUR ---
SHIFT SUMMARY: CONTINED CONFUSION, DISORIENTED TO TIME, DATE AND SITUATION. PATIENT FAMILIAR WITH FAMILY AND SELF. STANDBY ASSIST FOR TRANSFER TO MOTORIZED WHEELCHAIR. REORIENTATION AND EDUCATION PROVIDED. NO COMPLAINTS OF PAIN OR DISCOMFORT THROUGHOUT THE NIGHT. BED ALARM REMAINS ACTIVATED, BED IN LOW POSITION AND CALL DA SILVA IN REACH.
[2022-01-21 12:30] LABS: Influenza A, PCR NEGATIVE (NEGATIVE); Influenza B, PCR NEGATIVE (NEGATIVE); Resp Syncytial Virus, PCR NEGATIVE (NEGATIVE)
[2022-01-21 12:31] LABS: SARS-Cov-2 (COVID-19) PCR, MMC POSITIVE (NEGATIVE)
--- NOTE | 2022-01-21 19:15 | NUR ---
SHIFT SUMMARY- PT HAS SEEMED FAR MORE LETHARGIC TODAY. SHE IS ALERT TO SELF AND FAMILY. PT HAS BEEN LESS WILLING TO GET UP TO THE CHAIR, SHE HAS DECLINED MEALS, AND DECLINED TO INTERACT WITH STAFF SHE HAS IN PRIOR SHIFTS. NOTED A SLIGHT DRY OCCASSIONAL COUGH THIS EVENING. PLAN WAS FOR THE PT TO DC TO SNF, COVID TEST PRIOR TO DISCHARGE CAME BACK POSSITIVE. SPOKE TO THE FAMILY AND INSISTED THEY PUT ON A MASK IN THE ROOM AT ALL TIMES. SUGGESTED THEY TAKE THE CHILDREN HOME, AND (AFTER TALKING WITH THE NURSING AUDITING CONTROL CLERK) TOLD THEM TO TRY TO LIMIT EXPOSURE BY REDUCING DAILY VISITORS TO 2. VISITORS SHOULD WEAR GOWN, GLOVES AND MASK. REPORT COMPLETED WITH NIGHT RN, FAMILY WAS STILL AT THE BEDSIDE AT THE TIME OF REPORT. PT HAS NO S&S OF DISTRESS AND APPEARS TO BE RESTING COMFORTABLY AT THIS TIME.
--- NOTE | 2022-01-22 03:59 | NUR ---
PATIENT WITH HTN OVERNIGHT. MEDICATED PER OCT. INCONTINENT OF URINE. YEAST IN GROIN. PATIENT ALERT AND CONVERSIVE. REMAINS ON RA WITH LUNGS CTA OVERNIGHT. NO ACUTE EVETNS TONIGHT.
--- NOTE | 2022-01-22 18:06 | NUR ---
SHIFT SUMMARY PT A&O X1-2 T/O SHIFT. PT FAMILY/FRIEND @ BEDSIDE T/O SHIFT. REQUESTING PURE WIC T/O NIGHT FOR SKIN INTEGRITY. PAIN MEDICATED PER EMAR. RA. HPTN NOTED AND MEDICATED PER EMAR. 2X MAX ASSIST. UP TO CHAIR AND BSC T/O SHIFT. CALL LIGHT W/IN REACH. TOLERATING PO INTAKE. APPEARS VERY DROWSY T/O SHIFT. WORKED W/ PHYSICAL THERAPY.
--- NOTE | 2022-01-23 05:39 | NUR ---
PT SLEEPY THIS SHIFT BUT AWAKENS TO CONVERSATION, PURWICK ATTEMPTED BUT BECAME DISLODGED, ATTENDS CHANGED. RBKA, PROSTESIS IN ROOM. D/C TO [facility] WHEN COVID ISOLATION COMPLETE.
[2022-01-23 09:46] LABS: Albumin, Blood 1.9 g/dL (3.4-5.0); Anion Gap 5 mmol/L (6-16); Blood Urea Nitrogen 44 mg/dL (8-24); CO2, Blood 26 mmol/L (21-32); Calcium, Blood 8.2 mg/dL (8.5-10.1); Chloride, Blood 109 mmol/L (98-108); Creatinine, Blood 1.69 mg/dL (0.40-1.00); Glomerular Filtration Rate 33 (60-); Glucose, Blood 148 mg/dL (70-99); Phosphorus, Blood 4.7 mg/dL (2.5-4.9); Sodium, Blood 140 mmol/L (136-145)
--- NOTE | 2022-01-23 18:56 | NUR ---
SHIFT SUMMARY PT A&O X3 AND IN PLEASENT MOOD T/O SHIFT. APPEARS DROWSY. DAUGHTER @ BEDSIDE T/O SHIFT AND ABLE TO ASSIST W/ CARE. BED BATH PROVIDED THIS SHIFT. HTN NOTED. UP TO BEDSIDE COMODE. CALL LIGHT W/IN REACH. TOLERATING PO INTAKE WELL. COVID +, WAITING REHAB.
--- NOTE | 2022-01-24 05:48 | NUR ---
PT IS PLEASANT, CONFUSED, ASHLI PLACED THIS SHIFT, PARTIALLY EFFECTIVE, PT IS INCONTINENT. CB AC. PT IS TO D/C TO [facility] WHEN COVID ISOLATION IS FINISHED.
--- NOTE | 2022-01-24 19:45 | NUR ---
SHIFT SUMMARY- PT ALERT AND ORIENTED TO SELF AND FAMILY, FREQUENT REORIENTATION IS NEEDED WHEN STAFF ARE WORKING WITH HER SHE HAS DIFFICULTY WITH SHORT TERM MEMORY. PT FAMILY IS AT THE BEDSIDE T/O THE DAY AND THEY LEAVE FOR THE NIGHT. PT USES A PURWICK CATH AT NIGHT, FAMILY ASSISTS WITH ALL ADLS DURING THE DAY. PT IS A FALL RISK AND BED ALARM IS SET FOR PT SAFETY. PT IN BED, NO S&S OF DISTRESS, CALL LIGHT IN REACH NO S&S OF DISTRESS. NIGHT RN ASSUMED CARE AFTER REPORT WAS COMPLETED.
--- NOTE | 2022-01-25 06:32 | NUR ---
66 year old PTb appears older than actual age had CVA with weakness & fatique was to be dc to skilled rehab when tested positive for covid 19. PT is on room air & has a nonpod occ loose cough. Incontinent of large amt of urine this AM. HAs used purewick at HS in past. Does not call for assist, confused & needs extensive assist for adls toileting & needs to have rehab on dc. Family assists with cares during day.
--- NOTE | 2022-01-26 04:41 | NUR ---
66 year old PT with subacute ischemic stroke & prior old chronic strokes continues confused & needing extensive assist with ADLS. PT was planning on SNF rehab post CVA but tested positive for covid 19 & facility unable to take PT. She has suppoertive family who come in daily to assist in caring for PT. She is on room air & has occ nonprod cough. Has old RT BKA & she is up to chair or BSC with rt prosthesis on & used FWW. Planning home with home health & assist of Family members.
[2022-01-26] MEDS ORDERED: HYDRA25 PO (11:19)
[2022-01-26] MEDS ORDERED: CATAPRES0.2 M1 PO (11:19)
[2022-01-26] MEDS ORDERED: ELIQUIS5 M2 PO (11:19)
[2022-01-26] MEDS ORDERED: ACET325 PO (11:19)
[2022-01-26] MEDS ORDERED: HUMALOG JU100 UNIT/2 SC (11:21)
[2022-01-26] MEDS ORDERED: NYSTATIN15 GM TOP (11:21)
[2022-01-26] MEDS ORDERED: METO50 PO (11:21)
[2022-01-26] MEDS ORDERED: MIRALAX17 GM PO (11:22)
== END 2022-01-26 13:10 | disposition home health service (06) | DRG 64 ==
LOC: ER 19:15 → MEDS 23:29 → PCU 23:29 → MEDS 01-10 21:25
PROVIDERS: Internal Medicine; Physician Assistant; Student in an Organized Health Care Education/Training Program; ADMIT Internal Medicine
PROC: 8E0ZXY6 Isolation (ICD-10-PCS; principal; 2022-01-08)
DX: I63.432 Cerebral infarction due to embolism of left posterior cerebral artery (principal); U07.1 COVID-19; Z68.41 Body mass index [BMI] 40.0-44.9, adult; J45.21 Mild intermittent asthma with (acute) exacerbation; N17.9 Acute kidney failure, unspecified; G93.49 Other encephalopathy; F32.A Depression, unspecified; E78.5 Hyperlipidemia, unspecified; E66.01 Morbid (severe) obesity due to excess calories; M19.90 Unspecified osteoarthritis, unspecified site; E11.621 Type 2 diabetes mellitus with foot ulcer; L97.519 Non-pressure chronic ulcer of other part of right foot with unspecified severity; M25.512 Pain in left shoulder; I12.9 Hypertensive chronic kidney disease with stage 1 through stage 4 chronic kidney disease, or unspecified chronic kidney disease; N18.30 Chronic kidney disease, stage 3 unspecified; E11.22 Type 2 diabetes mellitus with diabetic chronic kidney disease; M77.8 Other enthesopathies, not elsewhere classified; F01.50 Vascular dementia, unspecified severity, without behavioral disturbance, psychotic disturbance, mood disturbance, and anxiety; Z90.710 Acquired absence of both cervix and uterus; Z89.511 Acquired absence of right leg below knee; Z88.5 Allergy status to narcotic agent; Z79.4 Long term (current) use of insulin; Z79.82 Long term (current) use of aspirin; Z79.899 Other long term (current) drug therapy
CPT/HCPCS: 0241U; 36415; 70450; 70551; 80048; 80053; 80069; 81001; 82947; 85025; 85027; 85610; 85730; 86850; 86900; 86901; 92610; 93005; 93010; 93306; 93880; 94760; 97110; 97129; 97130; 97161; 97164; 97166; 97530; 97535; 99285-25; A9270; J1815; J2405; J7120

== ENCOUNTER → 2022-02-11 | Outpatient (CLI) | payer MEDICARE ==
[~2022-02-11] MED LIST changes: +ACET325 PO; +C COMPLEX1000 M1 PO; +CATAPRES0.2 M1 PO; +CIPR500 PO; +ELIQUIS5 M2 PO; +FERSU300 PO; +FURO80 PO; +HUMALOG JU100 UNIT/2 SC; +HYDRA25 PO; +JARDIANCE25 MG PO; +METFORMIN HCL500 M3 PO; +METO50 PO; +MIRALAX17 GM PO; +NYSTATIN15 GM TOP; +Promod946 ML PO; +ZESTRIL40 M1 PO
== END | disposition home or self-care (01) ==
LOC: LAB SHORT 14:50 → LAB 14:50
DX: R41.82 Altered mental status, unspecified (principal)
CPT/HCPCS: 87086

== ENCOUNTER 2022-02-16 18:01 | Emergency (ER) | payer MEDICARE ==
[~2022-02-16] VITALS: Ht 167.6 cm; Wt 113.4 kg
[~2022-02-16 18:01] MED LIST changes: -C COMPLEX1000 M1 PO; -CIPR500 PO; -FERSU300 PO; -FURO80 PO; -Promod946 ML PO
[2022-02-16 18:57] LABS: BASOPHILS ABSOLUTE AUTO 0.14 K/mm3 (0.00-0.23); BASOPHILS PERCENT AUTO 2 % (0-2); EOSINOPHILS ABSOLUTE AUTO 0.52 K/mm3 (0.00-0.68); EOSINOPHILS PERCENT AUTO 6 % (0-6); Hematocrit 34.3 % (33.0-51.0); Hemoglobin 10.8 g/dL (11.5-16.0); IMMATURE GRAN ABSOLUTE AUTO 0.04 K/mm3 (0.00-0.10); IMMATURE GRAN PERCENT AUTO 0 % (0-1); LYMPHOCYTES ABSOLUTE AUTO 2.77 K/mm3 (0.84-5.20); LYMPHOCYTES PERCENT AUTO 29 % (21-46); MONOCYTES PERCENT AUTO 7 % (4-13); Mean Corpuscular HGB 29.1 pg (26.0-34.0); Mean Corpuscular HGB Conc 31.5 g/dL (31.5-36.5); Mean Corpuscular Volume 93 fL (80-100); Mean Platelet Volume 10.7 fL (9.1-12.4); NEUTROPHILS ABSOLUTE AUTO 5.37 K/mm3 (1.96-9.15); NEUTROPHILS PERCENT AUTO 56 % (41-73); Platelet Count 416 K/mm3 (150-400); RDW Coefficient Variation 13.7 % (11.7-14.2); RDW Standard Deviation 46.5 fL (35.1-46.3); Red Blood Cell Count 3.71 M/mm3 (3.80-5.20); White Blood Cell Count 9.54 K/mm3 (4.00-11.30)
[2022-02-16 19:15] LABS: Albumin, Blood 2.5 g/dL (3.4-5.0); Albumin/Globulin Ratio 0.6 (0.8-1.8); Bilirubin, Total 0.2 mg/dL (0.1-1.0); Bun/Creatinine Ratio 30.4 (12.0-20.0); Calcium, Blood 9.3 mg/dL (8.5-10.1); Creatinine, Blood 1.38 mg/dL (0.40-1.00); Globulin, Blood 4.4 g/dL (2.2-4.0); Potassium, Blood 5.5 mmol/L (3.5-5.5); Total Protein, Blood 6.9 g/dL (6.4-8.2)
== END 2022-02-16 21:18 | disposition home or self-care (01) ==
LOC: ER 18:01
PROVIDERS: Physician Assistant
DX: I10 Essential (primary) hypertension (principal); E11.9 Type 2 diabetes mellitus without complications; J98.11 Atelectasis; Z79.899 Other long term (current) drug therapy; Z79.82 Long term (current) use of aspirin
CPT/HCPCS: 36415; 71046; 80053; 83880; 84484; 85025; 93005; 93010; 99283-25

== ENCOUNTER → 2022-03-15 | Outpatient (CLI) | payer MEDICARE ==
[~2022-03-15] MED LIST changes: +C COMPLEX1000 M1 PO; +CIPR500 PO
== END | disposition home or self-care (01) ==
LOC: LAB 08:00 → LAB SHORT 08:00
DX: R44.3 Hallucinations, unspecified (principal); R30.0 Dysuria
CPT/HCPCS: 87077; 87086; 87186

== ENCOUNTER 2022-03-16 15:51 | Inpatient (IN) | payer MEDICARE ==
[~2022-03-16] VITALS: Ht 167.6 cm; Wt 106.0 kg
[~2022-03-16 15:51] MED LIST changes: -C COMPLEX1000 M1 PO; -CIPR500 PO
[2022-03-16 16:31] LABS: BASOPHILS ABSOLUTE AUTO 0.12 K/mm3 (0.00-0.23); BASOPHILS PERCENT AUTO 1 % (0-2); Base Excess Venous -10.3 mmol/L; Bicarbonate Venous 16.7 mmol/L (24.0-30.0); EOSINOPHILS ABSOLUTE AUTO 0.31 K/mm3 (0.00-0.68); EOSINOPHILS PERCENT AUTO 2 % (0-6); Hematocrit 29.5 % (33.0-51.0); Hemoglobin 8.9 g/dL (11.5-16.0); IMMATURE GRAN ABSOLUTE AUTO 0.07 K/mm3 (0.00-0.10); IMMATURE GRAN PERCENT AUTO 1 % (0-1); LYMPHOCYTES ABSOLUTE AUTO 1.56 K/mm3 (0.84-5.20); LYMPHOCYTES PERCENT AUTO 12 % (21-46); MONOCYTES ABSOLUTE AUTO 0.86 K/mm3 (0.16-1.47); MONOCYTES PERCENT AUTO 7 % (4-13); Mean Corpuscular HGB 28.9 pg (26.0-34.0); Mean Corpuscular HGB Conc 30.2 g/dL (31.5-36.5); Mean Corpuscular Volume 96 fL (80-100); Mean Platelet Volume 11.1 fL (9.1-12.4); NEUTROPHILS ABSOLUTE AUTO 10.05 K/mm3 (1.96-9.15); NEUTROPHILS PERCENT AUTO 78 % (41-73); PCO2 Venous 39.2 mmHg (38-42); Platelet Count 337 K/mm3 (150-400); RDW Coefficient Variation 15.3 % (11.7-14.2); RDW Standard Deviation 53.7 fL (35.1-46.3); Red Blood Cell Count 3.08 M/mm3 (3.80-5.20); White Blood Cell Count 12.97 K/mm3 (4.00-11.30)
[2022-03-16 16:32] LABS: pH Blood Venous 7.25 (7.34-7.37)
[2022-03-16] MEDS ORDERED: CIPR500 PO (16:39)
[2022-03-16 16:56] LABS: Albumin, Blood 2.9 g/dL (3.4-5.0); Albumin/Globulin Ratio 0.7 (0.8-1.8); Bilirubin, Total 0.3 mg/dL (0.1-1.0); Bun/Creatinine Ratio 42.7 (12.0-20.0); Calcium, Blood 8.9 mg/dL (8.5-10.1); Creatinine, Blood 2.34 mg/dL (0.40-1.00); Globulin, Blood 4.4 g/dL (2.2-4.0); Potassium, Blood 7.1 mmol/L (3.5-5.5); Total Protein, Blood 7.3 g/dL (6.4-8.2)
[2022-03-16 18:13] LABS: Influenza A, PCR NEGATIVE (NEGATIVE); Influenza B, PCR NEGATIVE (NEGATIVE); Resp Syncytial Virus, PCR NEGATIVE (NEGATIVE); SARS-Cov-2 (COVID-19) PCR, MMC NEGATIVE (NEGATIVE)
[2022-03-16 21:27] LABS: Source, Urine Foley catheter
[2022-03-16 21:33] LABS: Bilirubin, Urine Neg (Neg); Blood, Urine Neg (Neg); Glucose Qualitative, Urine 1+ (Neg); Ketones, Urine Neg (Neg); Leukocyte Esterase, Urine 1+ (Neg); Nitrite, Urine Neg (Neg); Protein, Urine 4+ (Neg); Urobilinogen, Urine NORM (Normal)
[2022-03-16 21:41] LABS: Appearance, Urine Hazy (Clear); Color, Urine Yellow (P-Yellow)
[2022-03-16 21:42] LABS: Amorphous Light (0-Heavy); Bacteria Few /hpf; Red Blood Cells, Urine Not Seen /hpf (0-2); Squamous Epithelial Cells Rare /hpf (Few); WBC Cast 0-2 /lpf (0)
[2022-03-16] MEDS ORDERED: C COMPLEX1000 M1 PO (22:16)
[2022-03-17 04:33] LABS: Bun/Creatinine Ratio 35.7 (12.0-20.0); Calcium, Blood 8.3 mg/dL (8.5-10.1); Creatinine, Blood 2.63 mg/dL (0.40-1.00)
--- NOTE | 2022-03-17 05:27 | NUR ---
CLINICAL EXERCISE SPECIALIST SUMMARY PT IS ALERT BUT HAS TIMES WHERE SHE IS CONFUSED EVEN ASKING HER DAUGHTER WHY HER LEG IS MISSING. PT HAS MAINTAINED O2 SATS >90% ON BIPAP W A 2L BLEED IN ALL NIGHT. PT'S BP WNL AND STABLE. TELE SHOWING SR IN THE 80'S. PT AFEBRILE. PT'S STUART IS PATENT BUT ONLY DRAINING 400ML CLOUDY YELLOW URINE THIS SHIFT. PT ATE HALF A SANDWHICH AFTER SHE ARRIVED AND THEN SLEPT COMFORTABLY FOR THE REST OF THE NIGHT WEARING THE BIPAP. AM K AT 6.0 SO PROVIDER NOTIFIED W NEW ORDERS FOR INSULIN AND CA GLUCONATE, SEE EMAR. WILL REPORT TO ONCOMING RN.
--- NOTE | 2022-03-17 08:41 | NUR ---
CARE ASSUMPTION PT A&O TO SELF & LOCATION. PT DISORIENTED TO DATE/TIME. PT SLOW TO RESPOND, REQUIRING EXTENDED TIME TO ANSWER SIMPLE Qs. PT DENYING PAIN/DISCOMFORT, N/T. MONITOR SHOWING SR, HR 70s-80s. BP ELEVATED, MEDICATED PER EMAR. SPO2 > 92% ON BIPAP WHILE SLEEPING, TRANSITIONED TO RA ONCE AWAKE. 2L NC APPLIED D/T DESAT TO 85% ON RA. PT TOLERATED PO INTAKE THEN REQUESTED TO LAY BACK DOWN. PT IN BED W/ BED ALARM ON & CALL LIGHT IN REACH.
--- NOTE | 2022-03-17 18:16 | NUR ---
SHIFT SUMMARY PT CONTINUES TO BE A&O TO SELF, FAMILY & LOCATION W/ FREQUENT FORGETFULNESS REQUIRING REMINDING. FOR INSTANCE, PT W/ PARTIALLY EATEN DINNER TRAY IN FRONT OF HER, W/ PT FORGETING HAVING JUST EATEN DINNER. PT VSS. MONITOR SHOWING SR, HR 60s-80s. SPO2 > 92% ON 2L NC. PT POTASSIUM ELEVATED, MEDICATED W/ ONE TIME ORDER OF LOKELMA PER MD CANALES INSTRUCTION (SEE EMAR). PT IN BED W/ BED ALARM ON & CALL LIGHT IN REACH.
[2022-03-18 03:50] LABS: Hematocrit 25.1 % (33.0-51.0); Hemoglobin 7.6 g/dL (11.5-16.0); Mean Corpuscular HGB Conc 30.3 g/dL (31.5-36.5); Mean Corpuscular Volume 96 fL (80-100); Platelet Count 286 K/mm3 (150-400); RDW Standard Deviation 52.4 fL (35.1-46.3); Red Blood Cell Count 2.62 M/mm3 (3.80-5.20); White Blood Cell Count 9.84 K/mm3 (4.00-11.30)
[2022-03-18 04:20] LABS: Albumin, Blood 2.5 g/dL (3.4-5.0); Anion Gap 6 mmol/L (6-16); Blood Urea Nitrogen 101 mg/dL (8-24); Bun/Creatinine Ratio 35.6 (12.0-20.0); CO2, Blood 20 mmol/L (21-32); Calcium, Blood 9.5 mg/dL (8.5-10.1); Chloride, Blood 110 mmol/L (98-108); Creatinine, Blood 2.84 mg/dL (0.40-1.00); Glomerular Filtration Rate 18 (60-); Glucose, Blood 131 mg/dL (70-99); Phosphorus, Blood 6.9 mg/dL (2.5-4.9); Potassium, Blood 6.1 mmol/L (3.5-5.5); Sodium, Blood 136 mmol/L (136-145)
--- NOTE | 2022-03-18 07:12 | NUR ---
SHIFT SUMMARY PT ALERT. ORIENTED TO SELF AND FAMILY. CPAP IN PLACE THROUGHOUT THE NIGHT, SATS OVER 94%. BP STABLE. HR SB/SR 50-60'S. AFEBRILE. STUART IN PLACE DRAINING YELLOW URINE TO GRAVITY, 725 URINE OUT. PT WITH CRITICALLY HIGH POTASSIUM THROUGHOUT THE NIGHT. MD AWARE, MULTIPLE INTERVENTIONS USED. POTASSIUM BROUGHT DOWN FROM 6.7 TO 6.1 WITH RECHECK LATER IN AM. IN BED RESTING. REPORT GIVEN
[2022-03-18 09:30] LABS: Percent Saturation 8.1 % (15.0-50.0); Potassium, Blood 5.9 mmol/L (3.5-5.5); Uric Acid, Blood 7.9 mg/dL (2.6-6.0)
--- NOTE | 2022-03-18 17:14 | NUR ---
SHIFT SUMMARY: PT SLEPT ON AND OFF A MAJORITY OF THIS SHIFT. ALERT AND ORIENTED TO SELF, FAMILY, AND SURROUNDINGS. BP STABLE. HR SR 70'S. PT ON 2L NC SATING >95%, THIS AM ASSESSMENT LS CTA, INCREASED CRACKLES NOTED IN AFTERNOON. REPAIRER SWITCHGEAR NOTIFIED, LASIX ADMINISTERED, CRACKLES REMAIN PRESENT ALTHOUGH IMPORVED. K+ REDRAWN AT 0830, RESULTS REVIEWED. NO NEW ORDERS RECEIVED, WILL REASSESS WITH AM LABS. AFEBRILE. NO BM THIS SHIFT. PT HAS STUART CATHETER IN PLACE DRAINING YELLOW URINE TO GRAVITY WITH 700 OUTPUT THIS SHIFT. DAUGHTER CURRENTLY AT BEDSIDE. PT SITTING UPRIGHT IND EATING DINNER. CALL LIGHT IN REACH. BED IN LOW. WILL REPORT TO ONCOMING RN.
[2022-03-19 04:51] LABS: Albumin, Blood 2.3 g/dL (3.4-5.0); Anion Gap 6 mmol/L (6-16); Blood Urea Nitrogen 105 mg/dL (8-24); Bun/Creatinine Ratio 34.8 (12.0-20.0); CO2, Blood 20 mmol/L (21-32); Calcium, Blood 8.9 mg/dL (8.5-10.1); Chloride, Blood 109 mmol/L (98-108); Creatinine, Blood 3.02 mg/dL (0.40-1.00); Glomerular Filtration Rate 17 (60-); Glucose, Blood 212 mg/dL (70-99); Phosphorus, Blood 7.4 mg/dL (2.5-4.9); Potassium, Blood 6.8 mmol/L (3.5-5.5); Sodium, Blood 135 mmol/L (136-145)
--- NOTE | 2022-03-19 05:52 | NUR ---
SHIFT SUMMARY PT ALERT TO SELF, FAMILY AND LOCATION AT TIMES. VERY FORGETFUL. BED ALARM IN PLACE. PHYSICIAN NOTIFIED OF CRITICAL AM LABS, PHYSICIAN TO PROVIDE ORDERS. PT TURNED Q 2 HRS. HR STABLE. BP STABLE. NO CP OR PRESSURE. PT DOES NOT USE CALL LIGHT AND CALLS OUT AT TIMES. OXYGEN SATURATION MAINTAINED ABOVE 95% ON BIPAP WITH 3 L BLEED IN. WILL CONT TO MONITOR UNTIL REPORT GIVEN TO DAYSHIFT RN.
--- NOTE | 2022-03-19 17:44 | NUR ---
SHIFT SUMMARY: PT REMAINED ALERT AND ORIENTED TO SELF AND FAMILY THIS SHIFT. BP STABLE. HR 50'S-60'S. AFEBRILE. PT ON 2L NC SATING >95%. LUNG SOUNDS CLEAR THROUGHOUT. PT WORKED WITH PHYSICAL THERAPY THIS MORNING. ABLE TO SIT ON SIDE OF BED AND STAND WITH TWO PERSON MAX ASSIST. PT MORE ALERT THIS AFTERNOON. ABLE TO HAVE CONVERSATIONG AND MAKE NEEDS KNOWN. K+ 5.6 THIS AM. REDRAW TOMORROW AT 0500. PT HAD 700ML OF URINARY OUTPUT THIS SHIFT. ONE BM. FAMILY HAS BEEN AT BEDSIDE A MAJORITY OF THE DAY. UPDATED ON PT CARE. BED IN LOW. CALL LIGHT IN REACH. WILL REPORT TO ONCOMING RN.
[2022-03-20 03:50] LABS: Albumin, Blood 2.3 g/dL (3.4-5.0); Anion Gap 7 mmol/L (6-16); Blood Urea Nitrogen 101 mg/dL (8-24); Bun/Creatinine Ratio 33.4 (12.0-20.0); CO2, Blood 20 mmol/L (21-32); Calcium, Blood 8.5 mg/dL (8.5-10.1); Chloride, Blood 109 mmol/L (98-108); Creatinine, Blood 3.02 mg/dL (0.40-1.00); Glomerular Filtration Rate 17 (60-); Glucose, Blood 205 mg/dL (70-99); Phosphorus, Blood 7.6 mg/dL (2.5-4.9); Potassium, Blood 5.6 mmol/L (3.5-5.5); Sodium, Blood 136 mmol/L (136-145)
--- NOTE | 2022-03-20 06:00 | NUR ---
END OF SHIFT SUMMARY NO OVER NIGHT EVENT PT REMAINS FREE FROM INJURY PT ANTONINA DERAS REPORT TO ONCOMING RN
--- NOTE | 2022-03-20 17:31 | NUR ---
SHIFT SUMMARY: PT MORE ALERT THIS SHIFT. ABLE TO HAVE CONVERSATION AND AT TIMES MAKE NEEDS KNOWN. STILL FORGETFUL AT TIMES. BP STABLE. HR 70'S. PT ON 2L NC SATING >95%. K+ 5.6 THIS AM. REDRAW TOMORROW 0500. STUART CATHETER IN PLACE DRAINING YELLOW URINE TO GRAVITY. PTS FAMILY AT BEDSIDE THROUGHOUT THE DAY. BED IN LOW. CALL LIGHT IN REACH. WILL REPORT TO ONCOMING RN.
--- NOTE | 2022-03-20 23:01 | NUR ---
CARE ASSUMPTION: PATIENT A&O X3, VSS WNL 3L NC, AND STUART DRAINING TO GRAVITY. CBG 277 @HS, CALL PLACED TO HOSPITALIST AND NEW ORDERS RECEIVED FOR LANTUS 15U SC DAILY. IVS PATENT. BED LOW AND CALL LIGHT IN REACH.
[2022-03-21 04:24] LABS: Hematocrit 24.6 % (33.0-51.0); Hemoglobin 7.4 g/dL (11.5-16.0); Mean Corpuscular HGB 28.5 pg (26.0-34.0); Mean Corpuscular HGB Conc 30.1 g/dL (31.5-36.5); Mean Corpuscular Volume 95 fL (80-100); Mean Platelet Volume 11.4 fL (9.1-12.4); Platelet Count 308 K/mm3 (150-400); RDW Coefficient Variation 14.7 % (11.7-14.2); RDW Standard Deviation 50.4 fL (35.1-46.3); White Blood Cell Count 9.32 K/mm3 (4.00-11.30)
[2022-03-21 04:48] LABS: Albumin, Blood 2.4 g/dL (3.4-5.0); Anion Gap 7 mmol/L (6-16); Blood Urea Nitrogen 102 mg/dL (8-24); CO2, Blood 22 mmol/L (21-32); Calcium, Blood 8.4 mg/dL (8.5-10.1); Chloride, Blood 107 mmol/L (98-108); Creatinine, Blood 3.09 mg/dL (0.40-1.00); Glomerular Filtration Rate 16 (60-); Glucose, Blood 182 mg/dL (70-99); Phosphorus, Blood 7.7 mg/dL (2.5-4.9); Potassium, Blood 5.9 mmol/L (3.5-5.5); Sodium, Blood 136 mmol/L (136-145)
--- NOTE | 2022-03-21 06:47 | NUR ---
SHIFT SUMMARY: PATIENT DENIES PAIN OR SOB. VS WNL ON 2-3L NC. PATIENT HAD BIPAP IN PLACE FOR ~3 HRS BEFORE REMOVING IT HERSELF AND DESATING TO MID 80S. PATIENT HAS SHORT TERM MEMORY LOSS AND IS FIDGETY. THIS AM SHE SCRATCHED OR PICKED HER NOSE RESULTING IN BLOODIED FACE AND SHEETS. MEDICATED PER EMAR. NO ACUTE CHANGES THIS SHIFT SINCE PREVIOUS RN NOTE. BED LOW WITH CALL LIGHT IN REACH. WILL REPORT TO ONCOMING RN.
[2022-03-21 14:53] LABS: Albumin, Blood 2.8 g/dL (3.4-5.0); Anion Gap 9 mmol/L (6-16); Blood Urea Nitrogen 108 mg/dL (8-24); Bun/Creatinine Ratio 34.1 (12.0-20.0); CO2, Blood 21 mmol/L (21-32); Calcium, Blood 8.7 mg/dL (8.5-10.1); Chloride, Blood 105 mmol/L (98-108); Creatinine, Blood 3.17 mg/dL (0.40-1.00); Glomerular Filtration Rate 16 (60-); Glucose, Blood 246 mg/dL (70-99); Phosphorus, Blood 8.4 mg/dL (2.5-4.9); Potassium, Blood 5.4 mmol/L (3.5-5.5); Sodium, Blood 135 mmol/L (136-145)
--- NOTE | 2022-03-21 17:23 | NUR ---
SHIFT SUMMARY: PT REMAINS ALERT AND ORIENTED X3, BP STABLE, HR 50'S, AFEBRILE, PT SATING ON 3L NC >94%. PT WORKED WITH PT/OT THIS AM. ABLE TO SIT ON SIDE OF BED AND STAND. MD IN THIS AM TO TALK WITH PATIENT AND DAUGHTER ABOUT POSSIBLE DIALYSIS. DAUGHTER TO TALK WITH FAMILY TO DECIDE PLAN OF CARE. STUART CATHER IN PLACE DRAINING YELLOW URINE TO GRAVITY WITH 700ML OUT THIS SHIFT. PT CURRENTLY SITTING UP EATING DINNER. BED IN LOW. CALL LIGHT IN REACH. WILL REPORT TO ONCOMING RN.
--- NOTE | 2022-03-21 23:44 | NUR ---
CARE ASSUMPTION: PATIENT ASLEEP WITH FAMILY MEMBER AT BEDSIDE. AFEBRILE, DENIES SOB OR CHEST PAIN, A&O X2. STUART DRAINING TO GRAVITY. PILLS GIVEN WITH APPLESAUCE. POWERGLIDE PATENT.
--- NOTE | 2022-03-22 05:30 | NUR ---
SHIFT SUMMARY: PATIENT O2 SATS >92% ON 2-3L NC. PATIENT WORE BIPAP BRIEFLY EARLY IN THE NIGHT THEN REFUSED. MINIMAL URINE OUTPUT. Q2 TURNS AND BRYAN CARE PERFORMED. MEDICATED PER EMAR. NO ACUTE EVENTS THIS SHIFT. BED LOW WITH CALL LIGHT IN REACH. WILL CONTINUE TO MONITOR AND REPORT TO ONCOMING RN.
[2022-03-22 08:44] LABS: Hematocrit 23.4 % (33.0-51.0); Hemoglobin 7.3 g/dL (11.5-16.0); Mean Corpuscular HGB 29.6 pg (26.0-34.0); Mean Corpuscular HGB Conc 31.2 g/dL (31.5-36.5); Mean Corpuscular Volume 95 fL (80-100); Mean Platelet Volume 11.2 fL (9.1-12.4); Platelet Count 279 K/mm3 (150-400); RDW Standard Deviation 51.2 fL (35.1-46.3); Red Blood Cell Count 2.47 M/mm3 (3.80-5.20); White Blood Cell Count 8.73 K/mm3 (4.00-11.30)
[2022-03-22 09:06] LABS: Albumin, Blood 3.3 g/dL (3.4-5.0); Anion Gap 8 mmol/L (6-16); Blood Urea Nitrogen 116 mg/dL (8-24); Bun/Creatinine Ratio 32.6 (12.0-20.0); CO2, Blood 22 mmol/L (21-32); Calcium, Blood 9.1 mg/dL (8.5-10.1); Chloride, Blood 106 mmol/L (98-108); Creatinine, Blood 3.56 mg/dL (0.40-1.00); Glomerular Filtration Rate 14 (60-); Glucose, Blood 160 mg/dL (70-99); Phosphorus, Blood 7.7 mg/dL (2.5-4.9); Potassium, Blood 5.4 mmol/L (3.5-5.5); Sodium, Blood 136 mmol/L (136-145)
[2022-03-22 13:11] LABS: A/G RATIO 0.8 (0.7-1.7); ALBUMIN 2.3 g/dL (2.9-4.4); ALPHA-1-GLOBULIN 0.3 g/dL (0.0-0.4); ALPHA-2-GLOBULIN 0.9 g/dL (0.4-1.0); BETA GLOBULIN 0.8 g/dL (0.7-1.3); GAMMA GLOBULIN 0.8 g/dL (0.4-1.8); GLOBULIN, TOTAL 2.9 g/dL (2.2-3.9); IMMUNOFIXATION RESULT, SERUM Comment: (.); IMMUNOGLOBULIN A, QN, SERUM 256 mg/dL (87-352); IMMUNOGLOBULIN G, QN, SERUM 752 mg/dL (586-1602); IMMUNOGLOBULIN M, QN, SERUM 80 mg/dL (26-217); M-SPIKE Comment: g/dL (Not Observed); PROTEIN, TOTAL, SERUM 5.2 g/dL (6.0-8.5)
--- NOTE | 2022-03-22 15:16 | NUR ---
UPDATE: PT OUT OF ROOM TO COURT OPERATIONS CLERK @[id number] FOR TEMPORARY HD CATHETER PLACEMENT.
--- NOTE | 2022-03-22 17:13 | NUR ---
SHIFT SUMMARY: PT ALERT AND ORIENTED X2, BP STABLE, HR 60'S, SATING >95% ON 2L NC. PT RECEIVED TEMP. HD CATHETER THIS AFTERNOON. VSS. CURRENTLY RECIEVING DIALYSIS AT BEDSIDE. STUART CATH IN PLACE DRAINING YELLOW URINE TO GRAVITY. DAUGHTER AT BEDSIDE AND UPDATED ON PT CARE. WILL REPORT TO ONCOMING RN.
--- NOTE | 2022-03-22 23:27 | NUR ---
CARE ASSUMPTION: PATIENT WAS BEING DIALYZED AT START OF SHIFT WITH FAMILY AT BEDSIDE. FUEL CELL BINDER REPORTS 1L REMOVED. PATIENT IS MORE ALERT THAN PREVIOUS SHIFTS AND PAINFUL. MEDICATED PER EMAR. REPOSITIONED FOR COMFORT. PATIENT ASLEEP WITH CPAP IN PLACE AT THIS TIME. BED LOW WITH CALL LIGHT IN REACH.
--- NOTE | 2022-03-23 05:33 | NUR ---
SHIFT SUMMARY: PATIENT VSS ON CPAP WITH 8L BLEED. IJ DIALYSIS CATH C/D/I AT THIS TIME. Q2 TURNS COMPLETED PATIENT ALLOWED - PATIENT PREFERS TO LAY ON LEFT SIDE. PATIENT HAS NOT COMPLAINED OF PAIN SINCE EARLY IN THE SHIFT. PATIENT HAS RESTED EASILY WITH CLEARER MENTATION WHEN AWAKE THIS SHIFT. STUART DRAINING CLOUDY YELLOW URINE TO GRAVITY. POWERGLIDE DRAWS AND FLUSHES - LABS SENT FOR ANALYSIS THIS AM. BED LOW WITH CALL LIGHT IN REACH. WILL CONTINUE TO MONITOR AND REPORT TO ONCOMING RN.
[2022-03-23 08:44] LABS: Hematocrit 24.4 % (33.0-51.0); Hemoglobin 7.8 g/dL (11.5-16.0)
[2022-03-23 09:01] LABS: Bun/Creatinine Ratio 31.3 (12.0-20.0); Calcium, Blood 8.4 mg/dL (8.5-10.1); Creatinine, Blood 2.27 mg/dL (0.40-1.00); Phosphorus, Blood 5.5 mg/dL (2.5-4.9); Potassium, Blood 4.2 mmol/L (3.5-5.5)
[2022-03-23 11:10] LABS: M-SPIKE, % Comment: % (Not Observed); PROTEIN,TOTAL,URINE 114.4 mg/dL (Not Estab.)
--- NOTE | 2022-03-23 17:42 | NUR ---
THIS RN CALLED TO CLARIFY LASIX DOSAGE CHANGE, WELL CXR RESULTS AND PT REPORTS OF CONTINUED SOB. GAVE NEW TELEPHONE ORDERS TO CHANGE LASIX DOSAGE TO 80 MG PO, DAILY STARTING TOMORROW AM. WILL ADMINSTER CURRENT LASIX DOSAGE FOR PM SHIFT (SEE EMAR) PER DR. VELAZQUEZ ORDER.
--- NOTE | 2022-03-23 17:46 | NUR ---
SHIFT SUMMARY PT ALERT THIS AM, BUT EXPRESSED CONFUSION ON DATE, TIME AND SITUATION. DAUGHTER ARRIVED TO BEDSIDE AND PT RECOGNIZED HER. BP MEDICATIONS HELD THIS AM FOR DIALYSIS, ADMINSTERED PER EMAR AFTER RETURNING FROM DIALYSIS. DURING AM ASSESSMENT, PT HAD EPISODE OF O2 DESATURATION TO 80'S. HIGH FLOW NC PLACED ON 13 L; PT RECOVERED THEN O2 DESATURATION OCCURED AGAIN. CPAP PLACED AND RT CALLED. PT ON AND OFF CPAP THROUGHOUT SHIFT. CRACKLES HEARD IN LUNGS. OTHER VITALS STABLE W/HR IN 70'S-80'S AND SBP 130'S-150'S. UPON RETURN FROM DIALYSIS VSS AND LUNGS SOUNDS IMPROVED. PT REPORTS MILD SOB AND FEELING LIKE "HARD TO CATCH A BREATH", O2 SATS >92%. CXR COMPLETED. STUART CATHETER IN PLACE AND DRAINING TO GRAVITY. POWERGLIDE PATENT AND FLUSHING. PT DID NOT EAT MUCH FOR LUNCH OR DINNER, BUT HAD A SMALL SNACK. PT TURNED Q2 AND REPOSITIONED NEEDED. FAMILY AT BEDSIDE MOST OF THE DAY. CALL LIGHT WITHIN REACH AND BED IN LOWEST POSITION. NEW LASIX ORDER TO START TOMORROW AM PER DR. VELAZQUEZ, SEE NURING NOTE.
--- NOTE | 2022-03-23 19:30 | NUR ---
ASSUMED CARE. DAUGHTER AT BEDSIDE. HENRI IS PALE, FRAILE APPEARING. WEAK, BEDREST. LS FINE CRACKLES SCATTERED T/O. DIMINISHED IN BASES. SATS MID 90'S ON 10L HI-FLOW. SOB AND ORTHOPNEA. COUGH WEAK. ON 10L HI-FLOW WHICH IS AN INCREASE IN O2. EDUCATION PROVIDED TO DAUGHTER AND PATIENT IN REGARDS TO DISEASE PROCESS AND CURRENT NEED FOR MORE 02. SINUS ON MONITOR, REPORTS CHEST DISCOMFORT WHEN TAKING A DEEP BREATH, COUGHING DOES NOT RESOLVE, BUT PAIN ONLY LAST FOR SECONDS THEN IS GONE. BLE EDEMA NOTED. WILL GIVE LASIX TONIGHT. BOTTOM RED, MEPILEX COVERING, SMALL SKIN TEAR IN GLUTEAL FOLD ONLY. REPOSITION Q2. SKIN IS PALE. DENIES ANY OTHER C/O AT THIS TIME. WILL CONTINUE TO MONITOR.
[2022-03-24 04:17] LABS: BASOPHILS PERCENT AUTO 1 % (0-2); EOSINOPHILS ABSOLUTE AUTO 0.36 K/mm3 (0.00-0.68); EOSINOPHILS PERCENT AUTO 5 % (0-6); Hematocrit 22.9 % (33.0-51.0); Hemoglobin 7.2 g/dL (11.5-16.0); IMMATURE GRAN ABSOLUTE AUTO 0.02 K/mm3 (0.00-0.10); IMMATURE GRAN PERCENT AUTO 0 % (0-1); LYMPHOCYTES ABSOLUTE AUTO 1.39 K/mm3 (0.84-5.20); LYMPHOCYTES PERCENT AUTO 17 % (21-46); MONOCYTES ABSOLUTE AUTO 0.92 K/mm3 (0.16-1.47); MONOCYTES PERCENT AUTO 11 % (4-13); Mean Corpuscular HGB 29.6 pg (26.0-34.0); Mean Corpuscular HGB Conc 31.4 g/dL (31.5-36.5); Mean Corpuscular Volume 94 fL (80-100); Mean Platelet Volume 10.9 fL (9.1-12.4); NEUTROPHILS ABSOLUTE AUTO 5.27 K/mm3 (1.96-9.15); NEUTROPHILS PERCENT AUTO 66 % (41-73); Platelet Count 289 K/mm3 (150-400); RDW Standard Deviation 50.9 fL (35.1-46.3); Red Blood Cell Count 2.43 M/mm3 (3.80-5.20); White Blood Cell Count 8.06 K/mm3 (4.00-11.30)
[2022-03-24 04:35] LABS: Bun/Creatinine Ratio 23.2 (12.0-20.0); Calcium, Blood 8.6 mg/dL (8.5-10.1); Creatinine, Blood 1.9 mg/dL (0.40-1.00); Potassium, Blood 4.1 mmol/L (3.5-5.5)
--- NOTE | 2022-03-24 05:40 | NUR ---
SHIFT SUMMARY: AOX3, FORGETFUL OF DATE AND SOMETIMES NEEDS REMINDERS ABOUT CARE. FOLLOWS DIRECTIONS WELL. DENIED ANY PAIN OR DISCOMFORT OTHER THEN WHEN ARMS ARE RAISED TO HIGH, THEN SHE GETS SHARP PAIN IN UPPER ARM. LS FINE CRACKLES SCATTERED T/O, DIMINISHED IN BASES. SATS LOW TO MID 90'S ON 10L. DOES C/O ORTHOPENA. COUGH IS WEAK. ENCOURAGED TO TAKE DEEPER BREATHS SHE BREATHS REAL SHALLOW. STATES SHE GETS SHARP PAIN IN MID CHEST WITH DEEP BREATHS. EDEMA NOTED TO BLE. SINUS WITH BBB 1ST DEGREE. GIVEN LASIX BUT ONLY HAD 300CC OF OUTPUT THIS SHIFT. URIEN IS DARK ORANGE. NO BM. SMALL SKIN TEAR IN GLUTEAL FOLD, DRESSINGS TILL INTACT. VS WNL, AFEBRILE. NO OTHER CHANGES TO REPORT, WILL REPORT TO ON COMING SHIFT.
[2022-03-24 08:18] LABS: Magnesium, Blood 2.4 mg/dL (1.6-2.4); Phosphorus, Blood 3.7 mg/dL (2.5-4.9)
[2022-03-24 13:08] LABS: HBSAG SCREEN Negative (Negative); HCV AB 0.1 (0.0-0.9); HEP A AB, IGM Negative (Negative); HEP B CORE AB, IGM Negative (Negative)
--- NOTE | 2022-03-24 15:23 | NUR ---
PT BACK FROM DIALYSIS AT 1330. VSS; BP 138/55, MAP OF 80, HR 61, RR 16, O2 98% ON 7L, TEMP 97.3.
--- NOTE | 2022-03-24 18:13 | NUR ---
SHIFT SUMMARY PT ALERT, INTERMITTENT CONFUSION ABOUT SITUATION AND DATE. ABLE TO BE REORIENTED. VSS, O2 SATS >92% ON 7 L HI-FLOW NC, HR 60'S - 70'S, SBP 130'S -140'S. PT DENIES SOB, IMPROVED BREATHING NOTED HOWEVER SHALLOW BREATHS ALSO NOTED. EDUCATION PROVIDED ABOUT NEED TO BREATH AND EXPAND LUNGS. PT TO DIALYSIS AT 0900. UPON RETURN FROM DIALYSIS, VSS. PT FATIGUED UPON RETURN AND RESTED; PT DECLINED BEDBATH DUE TO FATIGUE. APPETITE INCREASED AND PT ATE MORE OF HER MEALS TODAY. DAUGHTER AT BEDSIDE IN AM AND RETURNED AT PM; UPDATED ON PT CONDITION. PROVIDER IN ROOM IN AM W/DAUGHTER TO UPDATE ON CONDITION AND PLAN. PT ATTEMPTED BM, MEDICATED PER EMAR. STUART CATHETER IN PLACE AND DRAINING TO GRAVITY. YELLOW URINE, WITH LOW OUTPUT. BEDSIDE ECHO COMPLETED, RESULTS PENDING. CALL LIGHT WITHIN REACH AND BED IN LOWEST POSITION.
--- NOTE | 2022-03-24 19:32 | NUR ---
ASSUMED CARE. PT APPEARS TO BE FEELING BETTER. HAS MORE COLOR TO HER CHEEKS. DAUGHTER IS AT BEDSIDE. O2 IS DOWN TO 7L AND SATS ARE MID 90'S. STATES SHE FEELS LIKE SHE IS BREATHING BETTER THAN YESTERDAY BUT IS LABORED AT TIMES. HAD DIALYSIS WITH 3 LITERS OFF. HR SINUS KULDIP PER MONITOR. APPETITE IS SLIGHTLY BETTER. STATES NEEDS TO HAVE A BM BUT FEELS COMPACTED SOME. WILL LOOK AT EMAR. [employer] PLANTATION MANAGER GAVE PROTEIN SUPPLEMENT AND SOME COTTAGE CHEESE AT WHICH SHE TOLERATED IT. WILL CONTINUE TO NURA, CALL LIGHT IS IN REACH.
[2022-03-25 04:18] LABS: BASOPHILS ABSOLUTE AUTO 0.11 K/mm3 (0.00-0.23); BASOPHILS PERCENT AUTO 1 % (0-2); EOSINOPHILS ABSOLUTE AUTO 0.53 K/mm3 (0.00-0.68); EOSINOPHILS PERCENT AUTO 5 % (0-6); Hemoglobin 7.1 g/dL (11.5-16.0); IMMATURE GRAN ABSOLUTE AUTO 0.03 K/mm3 (0.00-0.10); IMMATURE GRAN PERCENT AUTO 0 % (0-1); LYMPHOCYTES ABSOLUTE AUTO 1.63 K/mm3 (0.84-5.20); LYMPHOCYTES PERCENT AUTO 17 % (21-46); MONOCYTES ABSOLUTE AUTO 1.17 K/mm3 (0.16-1.47); MONOCYTES PERCENT AUTO 12 % (4-13); Mean Corpuscular HGB 29.1 pg (26.0-34.0); Mean Corpuscular HGB Conc 30.9 g/dL (31.5-36.5); Mean Corpuscular Volume 94 fL (80-100); Mean Platelet Volume 11.1 fL (9.1-12.4); NEUTROPHILS ABSOLUTE AUTO 6.27 K/mm3 (1.96-9.15); NEUTROPHILS PERCENT AUTO 65 % (41-73); Platelet Count 288 K/mm3 (150-400); RDW Coefficient Variation 14.8 % (11.7-14.2); RDW Standard Deviation 51.5 fL (35.1-46.3); Red Blood Cell Count 2.44 M/mm3 (3.80-5.20); White Blood Cell Count 9.74 K/mm3 (4.00-11.30)
[2022-03-25 04:41] LABS: Albumin, Blood 2.7 g/dL (3.4-5.0); Anion Gap 3 mmol/L (6-16); Blood Urea Nitrogen 34 mg/dL (8-24); Bun/Creatinine Ratio 18.8 (12.0-20.0); CO2, Blood 32 mmol/L (21-32); Calcium, Blood 7.9 mg/dL (8.5-10.1); Chloride, Blood 100 mmol/L (98-108); Creatinine, Blood 1.81 mg/dL (0.40-1.00); Glomerular Filtration Rate 31 (60-); Glucose, Blood 172 mg/dL (70-99); Phosphorus, Blood 2.9 mg/dL (2.5-4.9); Potassium, Blood 4.4 mmol/L (3.5-5.5); Sodium, Blood 135 mmol/L (136-145)
--- NOTE | 2022-03-25 05:58 | NUR ---
SHIFT SUMMARY: MILD CONFUSION T/O IGHT BUT EASILY RE-ORIENTED. LS DIMINISHED, OCCATIONAL DRY COUGH. ON 8L VIA CPAP OR HI-FLOW. SATS HAVE BEEN MID 90'S. EDEMA STILL PRESENT TO BLE. TOLERATING LAYING DOWN BETTER TONIGHT THEN PREVIOUS NIGHT. SLEPT WELL T/O THE NIGHT. URINE OUTPUT MINIMAL ONLY 200 OUT THIS SHIFT. SKIN REDNESS AND RASH IMPROVING WITH USE OF POWDER, DID PLACE PILLOW CASES BETWEEN SKIN FOLDS. VS WNL, AFEBRILE. NO OTHER ACUTE CHANGES TO NOTE. CALL LIGHT IN REACH.
--- NOTE | 2022-03-25 14:50 | NUR ---
DIALYSIS: FISH MACHINE FEEDER AT BEDSIDE. PT SLEEPING ON LEFT SIDE. DENIES NEEDS AT THIS TIME. WILL CONT TO MONITOR.
--- NOTE | 2022-03-25 17:16 | NUR ---
DIALYSIS NOTE PT TOLERATED TX WELL, VSS, NO COMPLAINTS, REPORT GIVEN TO BEDSIDE RN.
[2022-03-25 18:25] LABS: Hematocrit 26.6 % (33.0-51.0); Hemoglobin 8.3 g/dL (11.5-16.0)
--- NOTE | 2022-03-25 18:34 | NUR ---
PT HAS BEEN STABLE THIS SHIFT. COOPERATIVE. FORGETFUL. BLOOD SUGARS STABLE. POOR APPETITE. STUART DRAINING WELL, LOW OUTPUT. PT HAD DIALYSIS THIS AFTERNOON. PT ON 3-4L THROUGHOUT DAYSHIFT. CPAP AT [facility]. PT WORKED WITH PT/OT TO SIT ON SOB, VERY WEAK AND DECONDITIONED. PT HAD BEDBATH. REDNESS IN PANNUS, BREAST AND BUTTOCKS, POWDER IN USE. PT HAIR MATTED TO HEAD. THIS RN WORKED THROUGHOUT SHIFT TO COMB AND DETANGLE, FAMILY ALSO ASSISTED. TELE WITH NO CHANGES. LABS TO BE REPEATED IN THE AM.
--- NOTE | 2022-03-25 21:53 | NUR ---
PT IS A&OX4 BUT FORGETFUL AT TIMES. VSS AT THIS TIME. DIALYSIS CATHETER IN RIGHT UPPER CHEST, SMALL AMOUNT OF DRAINAGE NOTED AT INSERTION SITE, WILL MONITOR. STUART CATHETER DRAINING YELLOW URINE WITH MODERATE AMOUNT OF SEDAMENT. REPOSITIONED FOR COMFORT. DENIES NEEDS AT THIS TIME. CALL LIGHT IN REACH.
[2022-03-26 04:04] LABS: Hematocrit 24.6 % (33.0-51.0); Hemoglobin 7.8 g/dL (11.5-16.0); Mean Corpuscular HGB 29.7 pg (26.0-34.0); Mean Corpuscular HGB Conc 31.7 g/dL (31.5-36.5); Mean Corpuscular Volume 94 fL (80-100); Mean Platelet Volume 10.8 fL (9.1-12.4); Platelet Count 303 K/mm3 (150-400); RDW Coefficient Variation 14.5 % (11.7-14.2); RDW Standard Deviation 49.9 fL (35.1-46.3); Red Blood Cell Count 2.63 M/mm3 (3.80-5.20); White Blood Cell Count 10.43 K/mm3 (4.00-11.30)
[2022-03-26 04:23] LABS: Albumin, Blood 2.8 g/dL (3.4-5.0); Anion Gap 5 mmol/L (6-16); Blood Urea Nitrogen 54 mg/dL (8-24); Bun/Creatinine Ratio 23.5 (12.0-20.0); CO2, Blood 31 mmol/L (21-32); Calcium, Blood 8.1 mg/dL (8.5-10.1); Chloride, Blood 101 mmol/L (98-108); Glomerular Filtration Rate 23 (60-); Glucose, Blood 145 mg/dL (70-99); Phosphorus, Blood 3.8 mg/dL (2.5-4.9); Potassium, Blood 4.1 mmol/L (3.5-5.5); Sodium, Blood 137 mmol/L (136-145)
--- NOTE | 2022-03-26 06:19 | NUR ---
PT HAS HAD NO CHANGES THROUGHOUT THE NIGHT. HR REMAINS IN SINUS RHYTHM IN THE 60'S. ON BIPAP WITH 4 LPM BLEED IN, O2 SATAS REAMINED >92%. RESTING WITHOUT ANY VISIBLE SIGNS OF DISTRESS. CALL LIGHT IN REACH.
--- NOTE | 2022-03-26 17:25 | NUR ---
SHIFT SUMMARY NO ACUTE EVENTS THIS SHIFT, VSS. PT ORIENTED TO SELF, FAMILY, AND SURROUNDINGS, ABLE TO STATE THE YEAR, HOWEVER PT WOULD REPEAT QUESTIONS AFTER ALREADY BEING ANSWERED AT TIMES AND WAS FORGETFUL THROUGHOUT THE SHIFT. STUART DRAINING TO GRAVITY. DIALYSIS COMPLETED AT BEDSIDE THIS SHIFT. PT ON 2-4 L O2 VIA NASAL CANNULA THIS SHIFT TO MAINTAIN O2 SATURATION > 90%. PT REPOSITIONED THROUGHOUT SHIFT BY STAFF.
[2022-03-27 04:20] LABS: Hematocrit 24.3 % (33.0-51.0); Hemoglobin 7.4 g/dL (11.5-16.0)
[2022-03-27 04:44] LABS: Albumin, Blood 2.6 g/dL (3.4-5.0); Anion Gap 6 mmol/L (6-16); Blood Urea Nitrogen 42 mg/dL (8-24); Bun/Creatinine Ratio 18.9 (12.0-20.0); CO2, Blood 30 mmol/L (21-32); Calcium, Blood 8.2 mg/dL (8.5-10.1); Chloride, Blood 102 mmol/L (98-108); Creatinine, Blood 2.22 mg/dL (0.40-1.00); Glomerular Filtration Rate 24 (60-); Glucose, Blood 159 mg/dL (70-99); Phosphorus, Blood 3.3 mg/dL (2.5-4.9); Potassium, Blood 4.2 mmol/L (3.5-5.5); Sodium, Blood 138 mmol/L (136-145)
--- NOTE | 2022-03-27 05:38 | NUR ---
PT HAD AN UNEVENTFUL NIGHT. TURNED O2 BLEED IN DOWN TO 2 LPM DUE TO O2 SATS BEING AT 98%. ABLE TO DRAW A.M. LABS FROM [facility]. STUART CATHETER DRAINING WITHOUT DIFFICULTY.
--- NOTE | 2022-03-27 18:31 | NUR ---
END OF SHIFT: PATIENT HAS BEEN SLEEPING MOST OF THE DAY, IN NO SIGNS OF ACUTE DISTRESS, PATIENT ON NC 3L SPO2>94%, PATIENT DENIES NEED FOR CPAP DUE TO COMFORT, ENCOURAGED AND EDUCATED. DENIES CHEST PAIN/PRESSURE, OR SOB AT REST. PATIENT REFUSED MOST REPOSITIONS. PATIENT HAS BEEN PLEASANT ALERT AND ORIENTED X 3-4. CALLS APPROPRIATELY. FAMILY AT THE BEDSIDE MOST OF THE DAY. DR. RODRÍGUEZ WAS HOSPITALIST TODAY. HAS BEEN SB TO SR. BLOOD PRESSURE WAS SOFTER AROUND NOON, WHICH I HELD CLONIDINE AT THAT TIME, BLOOD PRESSURE WITHIN PATIENTS NORM MAP>65 AFTER. NO CONCERNS OR QUESTIONS FORM PATIENT OR THIS RN AT THIS TIME, WILL CONTINUE TO MONITOR UNTIL SHIFT CHANGE.
[2022-03-28 04:15] LABS: Hematocrit 25.6 % (33.0-51.0); Hemoglobin 7.9 g/dL (11.5-16.0)
--- NOTE | 2022-03-28 04:34 | NUR ---
SHIFT SUMMARY: PT IS ORIENTED X 3, FORGETFUL AT BASELINE, DROWSY BUT AROUSABLE TO NOISE. REPOSTIONED FOR COMFORT Q2-3H. HR SB IN 50'S. O2 SATS > 92% ON BIPAP WITH 2LPM BLEED IN. STUART CATHER IN PLACE DRAINING CLOUDY, YELLOW URINE. NO COMPLAINTS OVERNIGHT.
[2022-03-28 04:41] LABS: Albumin, Blood 2.6 g/dL (3.4-5.0); Anion Gap 6 mmol/L (6-16); Blood Urea Nitrogen 70 mg/dL (8-24); Bun/Creatinine Ratio 24.3 (12.0-20.0); CO2, Blood 29 mmol/L (21-32); Calcium, Blood 8.2 mg/dL (8.5-10.1); Chloride, Blood 101 mmol/L (98-108); Creatinine, Blood 2.88 mg/dL (0.40-1.00); Glomerular Filtration Rate 18 (60-); Glucose, Blood 163 mg/dL (70-99); Phosphorus, Blood 4.3 mg/dL (2.5-4.9); Potassium, Blood 4.2 mmol/L (3.5-5.5); Sodium, Blood 136 mmol/L (136-145)
--- NOTE | 2022-03-28 16:54 | NUR ---
END OF SHIFT SUMMARY: PATIENT HAS BEEN MAINLY UNCHANGED THROUGH THE SHIFT, RECIEVED DIALYSIS THIS AM, WHICH MADE THIS PATIENT VERY SLEEPY ONCE SHE RETURNED. VINOD WAS ABLE TO STAY AWAKE FOR MEALS, AND SOME NOON MEDS, BUT AFTER SLEPT SINCE. PATIENT HAS BEEN REPOSITIONED Q2, POWERGLIDE DRESSING AND CAPS CHANGED BY THIS KNOWLEDGE ARCHITECT, DENIES CHEST PAIN OR PRESSURE, SLIGHTLY HYPERTENSIVE, AT TIMES, HELD AM MEDS SHE WAS BEING DIALIZED AND SPOKE WITH DIALYSIS NURSES WHICH WERE IN AGREEANCE. PATIENT HAS BEEN ALERT AND ORIENTED X 3, PLEASANT, WEARING 2L VIA NC, PATIENT IN NO SIGN OF ACUTE DISTRESS. PATIENT STUART CLEANED AND STAT LOCK CHANGED. PATIENT BUTTOCKS IMPROVING. PATIENT HAS NO CONCERNS, FAMILY AT BEDSIDE THIS AM WITH NO FURTHER CONCERNS OR QUESTIONS. WILL CONTINUE TO MONITOR UNTIL SHIFT CHANGE.
--- NOTE | 2022-03-28 20:07 | NUR ---
ASSUMED PT CARE FROM SAL RN ON DAYSHIFT. PT IS ORIENTED X 4 BUT SLEEPY, EASILY AROUSABLE. DENIES ANY SOB OR CHEST PAIN. VSS. STUART CATHETER IN PLACE DRAINING CLOUDY, YELLOW URINE. DENIES NEEDS AT THIS TIME. CALL LIGHT IN REACH.
--- NOTE | 2022-03-29 05:20 | NUR ---
PT'S NIGHT HAS BEEN UNEVENTFUL. REPOSITIONED Q2-3H OFF OF BACK. STUART CATHETER DRAINING WITHOUT DIFFICULTY. HR REMAINS SB IN THE 50-60. TOLOERATED WEARING BIPAP MAURICIO ALL NIGHT LONG WITH 2 LPM O2 BLEED IN. NO COMPLAINTS DURING SHIFT.
--- NOTE | 2022-03-29 17:20 | NUR ---
SHIFT SUMMARY PT ALERT AND ORIENTED AND DOES NOT HAVE ANY COMPLAINTS. PT NEEDS Q2 HR REPOSITIONING FOR COMFORT, AND PREVENTION OF FURTHER BREAK DOWN ON COCCXY. PT HAS REDNESS AND BREAK DOWN IN FOLDS, AND COCCYX (MEPILEX IN PLACE). SHE HAS BEEN GETTING MEDICATED POWDER TODAY. THE PT WENT IN TO THE FISH BAIT PICKER TO REPLACE THE TEMP DIALYSIS PORT FOR A PERMACATH. DRESSING'S ARE INTACT W/O ANY SIGNS OF HEMATOMA, BLEEDING, OR BRUISING. FAMILY WAS NOTIFIED WHEN PT GOT BACK FROM THE FISH BAIT PICKER, AND PT HAS BEEN STABLE BUT VERY DROWSY. SHE WAS GIVEN MILK OF MAG FOR CONSTIPATION REQUESTED BY THE PT. FAMILY HAS BEEN IN TO VISIT THE PT MULTIPLE TIMES THROUGHOUT THE DAY. WILL CONTINUE TO MONITOR.
--- NOTE | 2022-03-30 05:34 | NUR ---
SHIFT SUMMARY: PATIENT A&O X3, REPOSITIONED Q2, CPAP REMAINED IN PLACE T/O NIGHT. PERMACATH C/D/I. PATIENT REMAINS CONSTIPATED. PATIENT DENIES SOB OR CHEST PAIN - REPORTS SOME DISCOMFORT IN HER BACK WHICH WAS RELIEVED WITH ACETAMINOPHEN. MEDICATED PER EMAR. BED LOW WITH CALL LIGHT IN REACH. WILL CONTINUE TO MONITOR AND REPORT TO ONCOMING RN.
[2022-03-30 08:38] LABS: Hematocrit 26.5 % (33.0-51.0); Hemoglobin 8.3 g/dL (11.5-16.0); Mean Corpuscular HGB 29.5 pg (26.0-34.0); Mean Corpuscular HGB Conc 31.3 g/dL (31.5-36.5); Mean Corpuscular Volume 94 fL (80-100); Mean Platelet Volume 10.6 fL (9.1-12.4); Platelet Count 291 K/mm3 (150-400); RDW Coefficient Variation 14.5 % (11.7-14.2); RDW Standard Deviation 50.2 fL (35.1-46.3); Red Blood Cell Count 2.81 M/mm3 (3.80-5.20); White Blood Cell Count 10.41 K/mm3 (4.00-11.30)
[2022-03-30 08:48] LABS: Albumin, Blood 2.7 g/dL (3.4-5.0); Anion Gap 9 mmol/L (6-16); Blood Urea Nitrogen 87 mg/dL (8-24); Bun/Creatinine Ratio 26.4 (12.0-20.0); CO2, Blood 26 mmol/L (21-32); Calcium, Blood 8.5 mg/dL (8.5-10.1); Chloride, Blood 100 mmol/L (98-108); Creatinine, Blood 3.29 mg/dL (0.40-1.00); Glomerular Filtration Rate 15 (60-); Glucose, Blood 166 mg/dL (70-99); Phosphorus, Blood 4.7 mg/dL (2.5-4.9); Potassium, Blood 3.8 mmol/L (3.5-5.5); Sodium, Blood 135 mmol/L (136-145)
--- NOTE | 2022-03-30 12:31 | NUR ---
pt brought back to PCU from dialysis. She is very sleepy, says that she cant remember if she ate lunch. Denies any hunger at this time.
[2022-03-30 12:38] LABS: SARS-Cov-2 (COVID-19) PCR, MMC NEGATIVE (NEGATIVE)
[2022-03-30] MEDS ORDERED: Promod946 ML PO (12:39)
[2022-03-30] MEDS ORDERED: FURO80 PO (12:52)
[2022-03-30] MEDS ORDERED: FERSU300 PO (12:52)
--- NOTE | 2022-03-30 13:29 | NUR ---
SHIFT SUMMARY PT IS A&O, VS STABLE, AND PLAN FOR D/C IS THIS AFTERNOON. PT WORKED W/ PT THIS AM, GOT UP TO THE COMMODE W/O SUCCESS ON A BM, AND THEN WENT TO DIALYISIS AT 0900. TALKED TO DR ANTHONY, AND GOT BOWEL PREP ORDERS. WHEN PT GOT BACK FROM [facility] A SUPOSITORY WAS GIVEN, AND HER MEPILEX WAS CHANGED ON HER COCCYX. PT REFUSED GETTING UP TO THE CHAIR, BUT AFTER AN HOUR AGREED TO SIT UP IN THE CHAIR AFTER USING THE COMMODE. PT VS HAVE BEEN STABLE, AND TELE GOT D/C'D. WHEN TRIALING THE PT W/O O2 DURING THE DAY HER SP02 >93% AND NC HAS BEEN LEFT OFF. PT IS VERY TIRED AFTER DIALYSIS AND HAS BEEN MOSTLY RESTING, SHE DID NOT HAVE AN APPETITE WHEN SHE CAME BACK. WILL CONTINUE TO MONITOR, AND ASSESS FOR PROGRESS IN PASSING A BM.
--- NOTE | 2022-03-30 17:20 | NUR ---
DINNER NOTE PT REFUSED TO GET UP IN CHAIR FOR DINNER. FAMILY WAS AT BEDSIDE DURING THE REFUSAL.
--- NOTE | 2022-03-30 20:16 | NUR ---
CARE ASSUMPTION: PATIENT IN BED RESTING. RT AT BEDSIDE PLACING CPAP. PATIENT DID NOT TOLERATE 14 PRESSURE, RT TITRATED TO 11 PRESSURE WITH 1.5L BLEED. PATIENT A&O X3 AND LETHARGIC. [facility] C/D/I. VS [facility]. PLAN TO TRANSFER PATIENT TO [facility] FLOOR - OPERATING ROOM ASSISTANT LOOKING FOR BED PLACEMENT. BED LOW, SIDE RAIL RAISED, AND CALL LIGHT IN PLACE.
--- NOTE | 2022-03-30 22:26 | NUR ---
TRANSFER OF CARE: REPORT GIVEN TO [facility] RN. PATIENT TRANSFERRED TO [place] [id number] BY BED ON RA. THIS RN WILL CALL FAMILY TO UPDATE.
--- NOTE | 2022-03-31 07:40 | NUR ---
SHIFT SUMMARY: A/OX3, ABLE TO FOLLOW COMMANDS. CONTINUES TO REPORT DROWSINESS AND WEAKNESS. WHEN TRANSFERED ON UNIT PATIENT HAD LARGE URINARY INCONTINENCE. BED BATH COMPLETED AND POWDER APPLIED TO GROIN AND UNDER BREASTS. RED SMALL OPEN WOUND ON COCCYX NOTED- MEPILEX APPLIED. CPAP IN USE THROUGHOUT THE NIGHT CONTINUES SATING WELL. NO COMPLAINTS OF PAIN THROUGHOUT SHIFT. BED ALARM REMAINS ACTIVATED, BED IN LOW POSITION, CALL DA SILVA AND BELONGINGS IN REACH.
--- NOTE | 2022-03-31 13:08 | NUR ---
DISCHARGE PATIENT TRANSPORTED VIA WHEELCHAIR BY [facility] TO [facility]. DISCHARGE INSTRUCTIONS SENT WITH BANK COURIER FOR FACILITY. ALL INSTRUCTIONS AND MEDICATIONS ALSO FAXED TO FACILITY. POWERGLIDE TO ROLF REMOVED WITHOUT DIFFICULTY. BELONGINGS SENT WITH PATIENT, INCLUDING PROSTECTIC LEG. PATIENT SENT ON 2L OF O2. REPORT CALLED TO MARGARITO HAMMONDS NURSE AT FACILITY. FACILITY TO SCHEDULE FOLLOW UP APPOINTMENTS. DRESSING TO RIGHT UPPER CHEST WALL DIALYSIS CATH C/D/I.
== END 2022-03-31 13:06 | DRG 871 ==
LOC: ER 15:51 → PCU 20:18 → MEDS 03-30 21:52
PROVIDERS: Family Medicine; Internal Medicine; Internal Medicine Nephrology; Physician Assistant; Student in an Organized Health Care Education/Training Program; ADMIT Internal Medicine
PROC: 3E03329 Introduction of Other Anti-infective into Peripheral Vein, Percutaneous Approach (ICD-10-PCS; 2022-03-16)
PROC: 5A09457 Assistance with Respiratory Ventilation, 24-96 Consecutive Hours, Continuous Positive Airway Pressure (ICD-10-PCS; 2022-03-16)
PROC: 5A1D70Z Performance of Urinary Filtration, Intermittent, Less than 6 Hours Per Day (ICD-10-PCS; 2022-03-17)
PROC: 02HV33Z Insertion of Infusion Device into Superior Vena Cava, Percutaneous Approach (ICD-10-PCS; 2022-03-22)
PROC: B548ZZA Ultrasonography of Superior Vena Cava, Guidance (ICD-10-PCS; 2022-03-22)
PROC: 5A0935A Assistance with Respiratory Ventilation, Less than 24 Consecutive Hours, High Flow/Velocity Cannula (ICD-10-PCS; 2022-03-23)
PROC: 0JH63XZ Insertion of Tunneled Vascular Access Device into Chest Subcutaneous Tissue and Fascia, Percutaneous Approach (ICD-10-PCS; principal; 2022-03-29)
PROC: B518ZZA Fluoroscopy of Superior Vena Cava, Guidance (ICD-10-PCS; 2022-03-29)
PROC: B548ZZA Ultrasonography of Superior Vena Cava, Guidance (ICD-10-PCS; 2022-03-29)
PROC: 02HV33Z Insertion of Infusion Device into Superior Vena Cava, Percutaneous Approach (ICD-10-PCS; 2022-03-29)
PROC: 02PY33Z Removal of Infusion Device from Great Vessel, Percutaneous Approach (ICD-10-PCS; 2022-03-29)
DX: A41.59 Other Gram-negative sepsis (principal); G93.41 Metabolic encephalopathy; N18.6 End stage renal disease; J96.21 Acute and chronic respiratory failure with hypoxia; I50.33 Acute on chronic diastolic (congestive) heart failure; N17.0 Acute kidney failure with tubular necrosis; N39.0 Urinary tract infection, site not specified; I47.1 Supraventricular tachycardia; Z68.41 Body mass index [BMI] 40.0-44.9, adult; I13.2 Hypertensive heart and chronic kidney disease with heart failure and with stage 5 chronic kidney disease, or end stage renal disease; G93.1 Anoxic brain damage, not elsewhere classified; Z20.822 Contact with and (suspected) exposure to COVID-19; F01.50 Vascular dementia, unspecified severity, without behavioral disturbance, psychotic disturbance, mood disturbance, and anxiety; E55.9 Vitamin D deficiency, unspecified; E87.5 Hyperkalemia; D50.9 Iron deficiency anemia, unspecified; D63.1 Anemia in chronic kidney disease; G47.33 Obstructive sleep apnea (adult) (pediatric); E11.22 Type 2 diabetes mellitus with diabetic chronic kidney disease; E11.40 Type 2 diabetes mellitus with diabetic neuropathy, unspecified; E78.00 Pure hypercholesterolemia, unspecified; F32.9 Major depressive disorder, single episode, unspecified; E66.01 Morbid (severe) obesity due to excess calories; M19.90 Unspecified osteoarthritis, unspecified site; J44.9 Chronic obstructive pulmonary disease, unspecified; M77.8 Other enthesopathies, not elsewhere classified; Z89.511 Acquired absence of right leg below knee; Z99.81 Dependence on supplemental oxygen; Z86.73 Personal history of transient ischemic attack (TIA), and cerebral infarction without residual deficits; Z79.01 Long term (current) use of anticoagulants; Z90.710 Acquired absence of both cervix and uterus; Z88.5 Allergy status to narcotic agent; Z79.811 Long term (current) use of aromatase inhibitors; Z79.899 Other long term (current) drug therapy; Z79.82 Long term (current) use of aspirin; Z79.02 Long term (current) use of antithrombotics/antiplatelets; Z79.51 Long term (current) use of inhaled steroids; Z79.4 Long term (current) use of insulin; Z98.890 Other specified postprocedural states; J45.20 Mild intermittent asthma, uncomplicated; Z60.2 Problems related to living alone
CPT/HCPCS: 0241U; 36415; 36556; 36581; 51702; 71045; 71046; 76770; 76937; 77001; 80048; 80053; 80069; 80074; 81001; 82306; 82550; 82570; 82728; 82784; 82803; 82947; 83036; 83521; 83540; 83550; 83605; 83615; 83735; 83880; 83970; 84100; 84132; 84155; 84156; 84165; 84166; 84484; 84550; 85014; 85018; 85025; 85027; 85379; 86317; 86334; 87086; 93005; 93010; 93308; 93321; 94640; 94644; 94645; 94660; 94664; 94760; 94762; 96374; 96375; 96376; 97110; 97162; 97166; 97530; 97535; 99152; 99153; 99285-25; A9270; C1750; C1751; C1752; C1769; C1894; J0610; J0696; J0881; J1644; J1815; J1940; J2250; J2405; J2916; J3010; J7030; J7040; J7050; J7799; P9047; U0004

== ENCOUNTER 2024-01-13 10:20 | Observation (INO) | payer OTHER ==
[~2024-01-13] VITALS: Ht 165.1 cm; Wt 108.8 kg
[~2024-01-13 10:20] MED LIST changes: +C COMPLEX1000 M1 PO; +CIPR500 PO; +FERSU300 PO; +FURO80 PO; +Promod946 ML PO
--- NOTE | 2024-01-13 11:13 | NUR ---
DIALYSIS NOTE LOG ROLLER IN TO ASSESS REPORTED CVC LEAK. R CHEST PERCATH ACCESSED WITH STERILE TECHNIQUE. EVIENCE OF LEAKAGE AT HUB ON BOTH ARTERIAL AND VENOUS LUMENS WHEN FLUSHED WITH NS. DR GROVES AT BEDSIDE AND AWARE. DR. GAINES NOTIFIED. CVC CLAMPED, CAPPED AND SECURE.
[2024-01-13 11:28] LABS: BASOPHILS ABSOLUTE AUTO 0.13 K/mm3 (0.00-0.23); BASOPHILS PERCENT AUTO 1 % (0-2); EOSINOPHILS ABSOLUTE AUTO 0.41 K/mm3 (0.00-0.68); EOSINOPHILS PERCENT AUTO 4 % (0-6); Hematocrit 37.2 % (33.0-51.0); Hemoglobin 12.5 g/dL (11.5-16.0); IMMATURE GRAN ABSOLUTE AUTO 0.03 K/mm3 (0.00-0.10); IMMATURE GRAN PERCENT AUTO 0 % (0-1); LYMPHOCYTES ABSOLUTE AUTO 2.25 K/mm3 (0.84-5.20); LYMPHOCYTES PERCENT AUTO 23 % (21-46); MONOCYTES ABSOLUTE AUTO 0.62 K/mm3 (0.16-1.47); MONOCYTES PERCENT AUTO 6 % (4-13); Mean Corpuscular HGB 31.6 pg (26.0-34.0); Mean Corpuscular HGB Conc 33.6 g/dL (31.5-36.5); Mean Corpuscular Volume 94 fL (80-100); Mean Platelet Volume 11.2 fL (9.1-12.4); NEUTROPHILS ABSOLUTE AUTO 6.54 K/mm3 (1.96-9.15); NEUTROPHILS PERCENT AUTO 66 % (41-73); Platelet Count 231 K/mm3 (150-400); RDW Standard Deviation 44.6 fL (35.1-46.3); Red Blood Cell Count 3.95 M/mm3 (3.80-5.20); White Blood Cell Count 9.98 K/mm3 (4.00-11.30)
[2024-01-13 11:42] LABS: Bun/Creatinine Ratio 14.5 (12.0-20.0); Calcium, Blood 8.9 mg/dL (8.5-10.1); Creatinine, Blood 4.21 mg/dL (0.40-1.00); Potassium, Blood 4.8 mmol/L (3.5-5.5)
[2024-01-13] MEDS ORDERED: Acetaminophen 325 MG TABLET PO PRN (12:20)
[2024-01-13 14:37] VITALS: BP 208/93
[2024-01-13] MEDS ORDERED: INSULANPEN SC (14:40)
[2024-01-13] MEDS ORDERED: Polyethylene Glycol 3350 17 gm PO PRN (15:10)
[2024-01-13] MEDS ORDERED: Albuterol HFA200 ACT/6.7 GM INH INH PRN (15:15)
[2024-01-13] MEDS ORDERED: HydrALAZINE HCl 20 MG / ML 1ML Vial IV PRN (15:15)
[2024-01-13 16:18] VITALS: BP 175/62
[2024-01-13] MEDS ORDERED: Insulin Regular 100 Unit/ML 1ML Dose SC SCH ×2 (16:30)
[2024-01-13] MEDS ORDERED: HydrALAZINE HCl 25 MG Tab PO ONE (16:50)
[2024-01-13] MEDS ORDERED: Insulin Regular 100 UNIT/ML 10ML Vial SC SCH (17:00)
[2024-01-13] MEDS ORDERED: Miconazole Nitrate 2% 85 GM PWD TOP SCH (17:40)
--- NOTE | 2024-01-13 17:41 | NUR ---
LATE ENTRY-PT ADMIT FROM ER. DAUGHTER AT BEDSIDE FOR ADMIT INFO. 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 DAUGHTER STATES THEY CAN BE TRIGGERED BY LACK OF SLEEP, ANXIETY, PAIN. PER DAUGHTER, RAHAT, WHO IS DECISION MAKER. DO NOT GIVE MEDICAITONS FOR MOVEMENTS DUE TO INABILITY TO TOLORATE. SLEEP IS THE BEST TX FOR SYMPTOMS. R BKA WITH PROSTHESIS. ORIENTED X2-3, UNABLE TO REMEMBER WHY SHE IS HERE. PT LIVES ALONE. DAUGHTER, SON, AND CAREGIVERS ALTERNATE CARE SO THAT SHE IS NEVER ALONE. R/A. NPO AT MIDNIGHT.
[2024-01-13 20:37] VITALS: BP 153/59
[2024-01-13] MEDS ORDERED: HydrALAZINE HCl 25 MG Tab PO SCH (21:00)
[2024-01-13] MEDS ORDERED: Atorvastatin 40 MG Tab PO SCH (21:00)
[2024-01-13] MEDS ORDERED: Venlafaxine HCl 75 MG CapCR PO SCH (21:00)
[2024-01-13] MEDS ORDERED: Aspirin 81 MG TabEC PO SCH (21:00)
[2024-01-13] MEDS ORDERED: Apixaban 5 MG Tab PO SCH (21:00)
[2024-01-13] MEDS ORDERED: Metoprolol Tartrate 50 MG Tab PO SCH (21:00)
[2024-01-14] VITALS (21 sets, daily range): BP systolic 82–195; BP diastolic 48–113
[2024-01-14] MEDS ORDERED: Bupivacaine 0.5% HCl 5 MG/ML 30MLVIAL ONE (07:29)
--- NOTE | 2024-01-14 07:43 | NUR ---
ao 3-4 with time r/t memory, no c/o pain, no s/s acute distress, medications given at night, NPO at midnight, pt scheduled for surgery for leaky permacath , site intact w/ clear dressing, plan for dialysis post sx in am call light wn reach, fall precautions.
[2024-01-14] MEDS ORDERED: Heparin Sodium 5000 Units/ML 1ML MDV ONE ×2 (07:51→07:52)
[2024-01-14] MEDS ORDERED: NS 1,000 ML IV ONE (08:13)
[2024-01-14] MEDS ORDERED: CeFAZolin Sodium 2,000 MG in NS 100 ML IV SCH (08:25)
[2024-01-14] MEDS ORDERED: propofoL 20 ML IV ONE (08:27)
[2024-01-14] MEDS ORDERED: FentaNYL Citrate 50 MCG/ML 2 ML Injection ONE (08:41)
[2024-01-14] MEDS ORDERED: Lisinopril 20 MG Tab PO SCH (09:00)
[2024-01-14] MEDS ORDERED: Insulin Glargine-Yfgn 100 Unit/mL 3 ML SYR SC SCH (09:00)
[2024-01-14] MEDS ORDERED: Phenylephrine HCl 100 MCG/ML-NS 10MLSYR (1MG/10ML) ONE (09:00)
[2024-01-14] MEDS ORDERED: Heparin Sodium,Porcine 5,000 UNIT/0.5 ML SDV SC SCH (09:00)
[2024-01-14] MEDS ORDERED: Furosemide 80 MG Tab PO SCH (09:00)
[2024-01-14] MEDS ORDERED: Apixaban 5 MG Tab PO SCH (09:31)
[2024-01-14] MEDS ORDERED: Ondansetron HCl 2 MG / ML 2ML Vial ONE (09:43)
[2024-01-14] MEDS ORDERED: Anticoagulant Sod Citrate Soln 3 ML SYR INJ PRN (13:15)
[2024-01-14] MEDS ORDERED: Ondansetron HCl 2 MG / ML 2ML Vial IV PRN (15:25)
--- NOTE | 2024-01-14 18:20 | NUR ---
SHIFT SUMMARY: PT A&O X4 THIS AM. PLEASANT AND COOPERATIVE. PT RECEIVED SURGERY THIS AM FROM DILAYSIS CATH REPLACEMENT. PT TOLERATED WELL. POST SURGERY VSS. PT RECEIVED DIALYSIS AROUND 1345. PT BECAME VERY NAUSEOUS AROUND 30 MINUTES BEFORE DIALYSIS WAS FINISHED. HOSPITALIST NOTIFIED. ZOFRAN GIVEN WILL NO IMPROVEMENT. PT RESTED WELL POST DIALYSIS AND PLANS TO D/C THIS EVENING. DISCHARGE COMPLETED. IV REMOVED BY BACK TENDER CLOTH PRINTING W/O COMPLICATIONS. NO NEW MEDICATIONS. DAUGHTER TO TRANSPORT PT HOME AT D/C.
== END 2024-01-14 18:36 | disposition home or self-care (01) ==
LOC: ER 10:20 → MEDS 10:21
PROVIDERS: Emergency Medicine; ADMIT Family Medicine
DX: T82.43XA Leakage of vascular dialysis catheter, initial encounter (principal); Y71.8 Miscellaneous cardiovascular devices associated with adverse incidents, not elsewhere classified; I12.0 Hypertensive chronic kidney disease with stage 5 chronic kidney disease or end stage renal disease; E11.22 Type 2 diabetes mellitus with diabetic chronic kidney disease; N18.6 End stage renal disease; J44.9 Chronic obstructive pulmonary disease, unspecified; E78.5 Hyperlipidemia, unspecified; J45.20 Mild intermittent asthma, uncomplicated; Z86.73 Personal history of transient ischemic attack (TIA), and cerebral infarction without residual deficits; Z88.5 Allergy status to narcotic agent; Z79.01 Long term (current) use of anticoagulants; Z79.82 Long term (current) use of aspirin; Z79.4 Long term (current) use of insulin; Z79.899 Other long term (current) drug therapy
CPT/HCPCS: 80048; 82947; 85025; 94760; 96374; 99285; A9270; C1750; G0257; G0378; J0360; J0690; J1642; J1644; J1815; J2371; J2405; J2704; J3010; J7030

== ENCOUNTER → 2024-01-25 | Outpatient (CLI) | payer OTHER ==
[2024-01-25 10:18] LABS: BASOPHILS ABSOLUTE AUTO 0.12 K/mm3 (0.00-0.23); BASOPHILS PERCENT AUTO 2 % (0-2); EOSINOPHILS ABSOLUTE AUTO 0.24 K/mm3 (0.00-0.68); EOSINOPHILS PERCENT AUTO 4 % (0-6); Hematocrit 34.1 % (33.0-51.0); Hemoglobin 11.2 g/dL (11.5-16.0); IMMATURE GRAN ABSOLUTE AUTO 0.03 K/mm3 (0.00-0.10); IMMATURE GRAN PERCENT AUTO 1 % (0-1); LYMPHOCYTES ABSOLUTE AUTO 2.34 K/mm3 (0.84-5.20); LYMPHOCYTES PERCENT AUTO 36 % (21-46); MONOCYTES ABSOLUTE AUTO 0.32 K/mm3 (0.16-1.47); MONOCYTES PERCENT AUTO 5 % (4-13); Mean Corpuscular HGB 31.4 pg (26.0-34.0); Mean Corpuscular HGB Conc 32.8 g/dL (31.5-36.5); Mean Corpuscular Volume 96 fL (80-100); Mean Platelet Volume 11.7 fL (9.1-12.4); NEUTROPHILS ABSOLUTE AUTO 3.53 K/mm3 (1.96-9.15); NEUTROPHILS PERCENT AUTO 54 % (41-73); Platelet Count 175 K/mm3 (150-400); RDW Coefficient Variation 12.5 % (11.7-14.2); RDW Standard Deviation 43.3 fL (35.1-46.3); Red Blood Cell Count 3.57 M/mm3 (3.80-5.20); White Blood Cell Count 6.58 K/mm3 (4.00-11.30)
[2024-01-25 10:43] LABS: Albumin/Globulin Ratio 0.8 (0.8-1.8); Bilirubin, Total 0.3 mg/dL (0.1-1.0); Bun/Creatinine Ratio 7.6 (12.0-20.0); Calcium, Blood 8.1 mg/dL (8.5-10.1); Creatinine, Blood 0.53 mg/dL (0.40-1.00); Globulin, Blood 3.9 g/dL (2.2-4.0); Total Protein, Blood 6.9 g/dL (6.4-8.2)
[2024-01-25 10:47] LABS: Potassium, Blood 2.1 mmol/L (3.5-5.5)
== END ==
LOC: LAB 10:00 → LAB SHORT 10:00
PROVIDERS: Family Medicine
DX: I69.311 Memory deficit following cerebral infarction (principal)
CPT/HCPCS: 80053; 85025; 85651; 86592

== ENCOUNTER 2024-08-12 08:52 | Day surgery (SDC) | payer OTHER ==
[~2024-08-12] VITALS: Ht 165.1 cm; Wt 105.0 kg
[~2024-08-12 08:52] MED LIST changes: +ARTIFICIAL TEAR15 M6; +MOUNJARO5 MG/0.5 M SQ
[2024-08-12] MEDS ORDERED: NS 500 ML IV ONE (13:15)
[2024-08-12] MEDS ORDERED: NS 250 ML IV ONE (13:19)
[2024-08-12] MEDS ORDERED: Heparin Sodium 1000 Units/ML 10ML MDV ONE (13:19)
[2024-08-12] MEDS ORDERED: HydrALAZINE HCl 20 MG / ML 1ML Vial ONE (13:34)
[2024-08-12] MEDS ORDERED: Heparin Sodium 10,000 Units/ML 1ML MDV ONE (13:39)
[2024-08-12] MEDS ORDERED: Labetalol HCL 5 MG/ML 4ML Injection (Single Dose) ONE (13:47)
[2024-08-12 14:23] VITALS: BP 150/82
--- NOTE | 2024-08-12 14:25 | NUR ---
ASSUMED CARE OF PT. PT IS ALERT AND CONVERSING APPROPRIATELY; DENIES PAIN POST PROCEDURE. MONITOR SR 70'S, B/P 150/82, SPO2 98% RA. R CHEST DIALYSIS CATH NO SWELLING/HEMATOMA, TEGADERM DRSG INTACT. PT'S DAUGHTERS AT BEDSIDE VERY ATTENTIVE.
[2024-08-12 14:30] VITALS: BP 158/73
[2024-08-12 14:54] VITALS: BP 136/81
--- NOTE | 2024-08-12 14:55 | NUR ---
PT DRESSED WITH ASSISTANCE, SITE UNCHANGED; IV REMOVED-CANNULA INTACT.
--- NOTE | 2024-08-12 15:03 | NUR ---
PT AND DAUGHTERS RECEIVED DISCHARGE INSTRUCTIONS, MED LIST AND AFTER CARE INSTRUCTIONS; VERBALIZED GOOD UNDERSTANDING. PT LEFT FACILITY VIA W/C, CONDITION STABLE.
== END 2024-08-12 15:03 | disposition home or self-care (01) ==
LOC: MHTC 08:52
DX: T82.41XA Breakdown (mechanical) of vascular dialysis catheter, initial encounter (principal); E11.22 Type 2 diabetes mellitus with diabetic chronic kidney disease; N18.6 End stage renal disease; Z88.5 Allergy status to narcotic agent; Z88.6 Allergy status to analgesic agent; Z79.4 Long term (current) use of insulin; Z79.82 Long term (current) use of aspirin; Z79.01 Long term (current) use of anticoagulants; Z79.85 Long-term (current) use of injectable non-insulin antidiabetic drugs; Z79.899 Other long term (current) drug therapy; Z90.710 Acquired absence of both cervix and uterus
CPT/HCPCS: 36581; C1750; C1769; J0360; J1644; J7040; J7050; Q9967

== ENCOUNTER 2024-08-31 20:12 | Inpatient (IN) | payer OTHER ==
[~2024-08-31] VITALS: Ht 165.1 cm; Wt 103.4 kg
[2024-08-31] MEDS ORDERED: FentaNYL Citrate 50 MCG/ML 2 ML Injection IV ONE (20:25)
[2024-08-31 20:55] LABS: BASOPHILS ABSOLUTE AUTO 0.14 K/mm3 (0.00-0.23); BASOPHILS PERCENT AUTO 1 % (0-2); EOSINOPHILS ABSOLUTE AUTO 0.32 K/mm3 (0.00-0.68); EOSINOPHILS PERCENT AUTO 3 % (0-6); Hematocrit 33.9 % (33.0-51.0); Hemoglobin 11.1 g/dL (11.5-16.0); IMMATURE GRAN ABSOLUTE AUTO 0.04 K/mm3 (0.00-0.10); IMMATURE GRAN PERCENT AUTO 0 % (0-1); LYMPHOCYTES ABSOLUTE AUTO 3.61 K/mm3 (0.84-5.20); LYMPHOCYTES PERCENT AUTO 34 % (21-46); MONOCYTES ABSOLUTE AUTO 0.63 K/mm3 (0.16-1.47); MONOCYTES PERCENT AUTO 6 % (4-13); Mean Corpuscular HGB 31.1 pg (26.0-34.0); Mean Corpuscular HGB Conc 32.7 g/dL (31.5-36.5); Mean Corpuscular Volume 95 fL (80-100); Mean Platelet Volume 10.9 fL (9.1-12.4); NEUTROPHILS PERCENT AUTO 56 % (41-73); Platelet Count 246 K/mm3 (150-400); RDW Coefficient Variation 12.6 % (11.7-14.2); RDW Standard Deviation 43.8 fL (35.1-46.3); Red Blood Cell Count 3.57 M/mm3 (3.80-5.20); White Blood Cell Count 10.74 K/mm3 (4.00-11.30)
[2024-08-31 21:13] LABS: Albumin, Blood 3.2 g/dL (3.4-5.0); Albumin/Globulin Ratio 0.8 (0.8-1.8); Bilirubin, Total 0.3 mg/dL (0.1-1.0); Bun/Creatinine Ratio 5.2 (12.0-20.0); Calcium, Blood 8.8 mg/dL (8.5-10.1); Creatinine, Blood 3.06 mg/dL (0.40-1.00); Globulin, Blood 3.9 g/dL (2.2-4.0); Potassium, Blood 3.6 mmol/L (3.5-5.5); Total Protein, Blood 7.1 g/dL (6.4-8.2)
[2024-08-31] MEDS ORDERED: HYDROmorphone HCl/Pf 1MG SYR IV ONE (22:05)
[2024-08-31] MEDS ORDERED: NS 1,000 ML IV SCH (22:30)
[2024-08-31] MEDS ORDERED: FentaNYL Citrate 50 MCG/ML 2 ML Injection IV PRN (22:35)
[2024-08-31] MEDS ORDERED: FLU VACC TS2024-25(6MOS UP)/PF 45 MCG/0.5 ML SYRINGE IM ONE (22:35)
[2024-08-31] MEDS ORDERED: Ondansetron HCl 2 MG / ML 2ML Vial IV PRN (22:35)
[2024-08-31 23:42] LABS: Prothrombin Time Results 10.7 Sec (9.7-11.5)
[2024-09-01 01:32] VITALS: BP 138/58
[2024-09-01 02:23] VITALS: BP 137/48
[2024-09-01 04:41] VITALS: BP 149/69
[2024-09-01] MEDS ORDERED: Albuterol HFA200 ACT/6.7 GM INH INH PRN (05:25)
[2024-09-01 05:28] LABS: BASOPHILS ABSOLUTE AUTO 0.12 K/mm3 (0.00-0.23); BASOPHILS PERCENT AUTO 1 % (0-2); EOSINOPHILS ABSOLUTE AUTO 0.01 K/mm3 (0.00-0.68); EOSINOPHILS PERCENT AUTO 0 % (0-6); Hematocrit 33.7 % (33.0-51.0); IMMATURE GRAN ABSOLUTE AUTO 0.07 K/mm3 (0.00-0.10); IMMATURE GRAN PERCENT AUTO 1 % (0-1); LYMPHOCYTES ABSOLUTE AUTO 1.07 K/mm3 (0.84-5.20); LYMPHOCYTES PERCENT AUTO 8 % (21-46); MONOCYTES ABSOLUTE AUTO 0.61 K/mm3 (0.16-1.47); MONOCYTES PERCENT AUTO 4 % (4-13); Mean Corpuscular HGB 31.7 pg (26.0-34.0); Mean Corpuscular HGB Conc 32.6 g/dL (31.5-36.5); Mean Corpuscular Volume 97 fL (80-100); Mean Platelet Volume 11.2 fL (9.1-12.4); NEUTROPHILS ABSOLUTE AUTO 12.03 K/mm3 (1.96-9.15); NEUTROPHILS PERCENT AUTO 86 % (41-73); Platelet Count 258 K/mm3 (150-400); RDW Coefficient Variation 12.7 % (11.7-14.2); RDW Standard Deviation 44.9 fL (35.1-46.3); Red Blood Cell Count 3.47 M/mm3 (3.80-5.20); White Blood Cell Count 13.91 K/mm3 (4.00-11.30)
[2024-09-01 06:24] LABS: Albumin, Blood 3.3 g/dL (3.4-5.0); Albumin/Globulin Ratio 0.8 (0.8-1.8); Bilirubin, Total 0.3 mg/dL (0.1-1.0); Calcium, Blood 8.5 mg/dL (8.5-10.1); Creatinine, Blood 3.82 mg/dL (0.40-1.00); Globulin, Blood 3.9 g/dL (2.2-4.0); Potassium, Blood 3.9 mmol/L (3.5-5.5); Total Protein, Blood 7.2 g/dL (6.4-8.2)
[2024-09-01] MEDS ORDERED: Peg 400/Hypromellose/Glycerin 15 DROP/ML BTL BOTHEYES PRN (06:30)
[2024-09-01 07:14] VITALS: BP 170/70
--- NOTE | 2024-09-01 08:18 | NUR ---
ARRIVAL TO UNIT/SHIFT SUMMARY NOC. PT ARRIVED TO SURGICAL UNIT ROOM 218 AT 0125. PT RATED PAIN 8/10 UPON ARRIVAL AND WAS MEDICATED WITH IV FENT. PT VERY SOMNOLENT AND DESAT O2 AFTER PAIN MEDICATION. PT PLACED ON 2L VIA N/C AND MAINTAINED SATS ABOVE 93%. PT IRRITABLE AT QUESTIONS FOR ADMIT AND IGNORED THIS RN AT TIMES. PT A/O X3 PRIOR TO PAIN MEDICATION. BED ALARM SET FOR SAFETY. CONSULTS CALLED BY PAYROLL HUMAN RESOURCES ASSISTANT. CALL LIGHT IN REACH.
[2024-09-01] MEDS ORDERED: Furosemide 80 MG Tab PO SCH (09:00)
[2024-09-01] MEDS ORDERED: Metoprolol Tartrate 50 MG Tab PO SCH (09:00)
[2024-09-01] MEDS ORDERED: HydrALAZINE HCl 50 MG Tab PO SCH (09:00)
[2024-09-01] MEDS ORDERED: Lisinopril 20 MG Tab PO SCH (09:00)
[2024-09-01 15:24] VITALS: BP 148/54
--- NOTE | 2024-09-01 17:30 | NUR ---
SHIFT SUMMARY S/P R FEM FX, A/OX4, VSS, TOLERATING PO, PAIN MANAGED PER EMAR, DISCUSSED SURGERY PLANS WITH ORTHO WHO STATES SHE NEEDS TO WAIT UNTIL TOMORROW SINCE SHE TAKES ANTICOAGULANTS, PLAN FOR SURGERY TOMORROW. NO ACUTE EVENTS, CALL LIGHT IN REACH.
--- NOTE | 2024-09-01 17:32 | NUR ---
PATIENT IS VEGETARIAN
[2024-09-01 18:30] VITALS: BP 141/63
[2024-09-01] MEDS ORDERED: Venlafaxine HCl 75 MG CapCR PO SCH (21:00)
[2024-09-01] MEDS ORDERED: Aspirin 81 MG TabEC PO SCH (21:00)
[2024-09-02] VITALS (19 sets, daily range): BP systolic 90–177; BP diastolic 42–98
--- NOTE | 2024-09-02 04:31 | NUR ---
NOC SUMMARY- PT PAIN MANAGED WELL. PT HAS VOIDED WITH BRIEF CHANGED. PT HAS REMAINED NPO SINCE MN. PT HAS HAD A CHG WIPE DOWN THIS SHIFT. PT REMAINS ON O2 @ 1LPM VIA NC. SPO2 >90%. CALL LIGHT IN REACH.
--- NOTE | 2024-09-02 05:12 | NUR ---
0500- PT HAD ANOTHER IC VOID. BRIEF CHANGED. PT DOES NOT TOLERATE BRIEF CHANGE AT ALL AND YELLS OUT AND GRABS AT STAFF. PT URINE HAS STRONG FOUL ODOR. CLEAN CATCH NOT POSSIBLE.
[2024-09-02] MEDS ORDERED: Tranexamic Acid 1,000 MG in NS 100 ML IV SCH (08:10)
[2024-09-02] MEDS ORDERED: Acetaminophen 500 MG Tab PO SCH (08:10)
[2024-09-02] MEDS ORDERED: Chlorhexidine Mouth Care 15 ML UDC MT SCH (08:10)
[2024-09-02] MEDS ORDERED: NS 1,000 ML IV SCH (08:10)
[2024-09-02] MEDS ORDERED: CeFAZolin Sodium 2,000 MG in NS 100 ML IV SCH ×2 (08:10→23:00)
--- NOTE | 2024-09-02 09:40 | NUR ---
DR. VELAZQUEZ ROUNDED DISCUSSED THE NEED FOR HYDRALAZINE PARAMETERS, DR. VELAZQUEZ CONFIRMED THAT HYDRALAZINE IS A SCHEDULED MEDICATION AND SHOULD BE HELD FOR SBP <105. DR. VELAZQUEZ NOTIFIED PT HAS HAD STRONG SMELLING URINE PER NOC RN, DR. VELAZQUEZ ORDERED STUART CATH PLACEMENT AND A URINE SAMPLE TO BE SENT. ACCUCHECK ORDERS PLACED AND LOW SLIDING SCALE INSULIN ORDERED PER DR. VELAZQUEZ.
[2024-09-02 09:56] LABS: Anion Gap 11 mmol/L (3-11); Blood Urea Nitrogen 33 mg/dL (8-24); Bun/Creatinine Ratio 5.6 (12.0-20.0); CO2, Blood 31 mmol/L (21-32); Calcium, Blood 8.7 mg/dL (8.5-10.1); Chloride, Blood 99 mmol/L (98-108); Creatinine, Blood 5.85 mg/dL (0.40-1.00); Glomerular Filtration Rate 7 (60-); Glucose, Blood 181 mg/dL (70-99); Phosphorus, Blood 6.2 mg/dL (2.5-4.9); Potassium, Blood 4.3 mmol/L (3.5-5.5); Sodium, Blood 137 mmol/L (136-145)
[2024-09-02] MEDS ORDERED: propofoL 100 ML IV ONE (11:35)
[2024-09-02] MEDS ORDERED: Bupivacaine 0.5% Inj 10 ML Vial ONE (11:35)
[2024-09-02] MEDS ORDERED: Insulin Human Lispro 100 Units/ML 3ML Syringe SC SCH (12:00)
[2024-09-02] MEDS ORDERED: Ketorolac Tromethamine 30mg Vial ONE (12:34)
[2024-09-02] MEDS ORDERED: Dexamethasone Sod Phos 10 MG/ML 1ML VIAL ONE ×3 (12:34→16:03)
[2024-09-02] MEDS ORDERED: Ondansetron HCl 2 MG / ML 2ML Vial ONE ×2 (12:34→13:15)
--- NOTE | 2024-09-02 13:46 | NUR ---
PATIENT IN DAY SURGERY ACCOMPANIED BY DAUGHTER, AMY GIANG. DR BOYD AT BEDSIDE SPEAKING WITH PATIENT AND DAUGHTER. US GUIDED IV ACCESS BEING ATTEMPTED. CURRENTLY NO IV ACCESS PREVIOUS ACCESS SUSPECTED TO BE INFILTRATED DUE TO PAIN WITH FLUSH.
--- NOTE | 2024-09-02 13:59 | NUR ---
PT TAKEN TO DAY SURGERY AT APPROXIMATELY 1335.
--- NOTE | 2024-09-02 14:00 | NUR ---
DAY SURGERY RN NOTIFIED THAT PT HAS A LATEX ALLERGY. CENTRAL SUPPLY WAS INITIALLY UNABLE TO LOCATE A LATEX FREE CATHETER.
--- NOTE | 2024-09-02 14:14 | NUR ---
REPORT GIVEN TO JOEY AVELAR RN, WHO IS RESUMING CARE IN DAY SURGERY.
[2024-09-02] MEDS ORDERED: FentaNYL Citrate 50 MCG/ML 2 ML Injection ONE (14:15)
[2024-09-02] MEDS ORDERED: Lidocaine HCl 4% 5 ML SDA ONE (14:24)
[2024-09-02] MEDS ORDERED: ePHEDrine Sulfate 50 MG/ML 1ML Injection ONE (15:19)
[2024-09-02] MEDS ORDERED: Phenylephrine HCl 100 MCG/ML-NS 10MLSYR (1MG/10ML) ONE (15:40)
[2024-09-02] MEDS ORDERED: Vasopressin 20 UNITS/ML 1ML Vial ONE (15:54)
--- NOTE | 2024-09-02 16:00 | NUR ---
09/02/24 1600 CARMEN DURANT OPEN SKIN TEAR NOTED ON RT LOWER ABD/UNDERWEAR LINE AREA PRIOR TO OR BRING BACK. PROVIDER AWARE.
[2024-09-02] MEDS ORDERED: EpiNEPhrine 1 MG/1 ML 1ML Vial ONE (16:03)
[2024-09-02] MEDS ORDERED: Ropivacaine 0.5% HCL/PF 5 MG/ML 30ML Vial ONE (16:12)
--- NOTE | 2024-09-02 18:00 | NUR ---
PT ARRIVED TO RM 218 FROM PACU AT 1755. PT AWAKE AND ORIENTED X3 BUT DROWSY UPON ARRIVAL. PT COOPERATIVE AND ABLE TO FOLLOW DIRECTIONS. PT ABLE TO MOVE ALL EXTREMITIES. R HIP DRESSING C/D/I. CALL LIGHT PLACED WITHIN REACH. FAMILY AT THE BEDSIDE FOR SUPPORT.
--- NOTE | 2024-09-02 19:30 | NUR ---
SHIFT SUMMARY PT IS POD#0 FROM R HIP REPAIR WITH DR. RAGSDALE. PAIN HAS BEEN MINIMAL POST-OP. PT TOLERATING PO. VSS. PT USES CALL LIGHT APPROPRIATELY AND IT IS WITHIN REACH. FAMILY PRESENT FOR SUPPORT AND PT RESPONDS WELL TO FAMILY. PT REMAINS ON 2L O2 VIA NC POST-OP.
[2024-09-03] VITALS (22 sets, daily range): BP systolic 82–155; BP diastolic 42–73
--- NOTE | 2024-09-03 04:58 | NUR ---
SHIFT SUMMARY POD 1 RIGHT GAMMA NAILING. GAUZE/PRESSURE TAPE DRESSING X2 AND TEGADERM/GAUZE DRESSING X1 CDI. ICE THERAPY TO RIGHT HIP MIGEULINA. PAIN MANAGED PER EMAR. ABX INFUSED PER ORDERS. IV TO LEFT FOOT TKO. NO URINE OUTPUT, HAS DIALYSIS SCHEDULED FOR TODAY. PUREWICK IN PLACE. ON 2L NC WITH CONT BIOX IN PLACE, SPO2 ABOVE 93%. TELE IN PLACE, NSR AT 93 PER POST PARTUM NURSE. PT DENIES CHEST PAIN, PRESSURE OR SOB. MIGUELINA PO INTAKE, DENIES N/V. PLAN TO WORK WITH THERAPY TODAY. PT CURRENTLY RESTING IN BED WITH CALL LIGHT IN REACH, RESPIRATIONS EVEN/UNLABORED AND EYES CLOSED. ABLE TO MAKE NEEDS KNOWN. WILL GIVE REPORT ON COMING RN.
[2024-09-03 05:09] LABS: BASOPHILS ABSOLUTE AUTO 0.05 K/mm3 (0.00-0.23); BASOPHILS PERCENT AUTO 0 % (0-2); EOSINOPHILS PERCENT AUTO 0 % (0-6); Hematocrit 26.2 % (33.0-51.0); Hemoglobin 8.4 g/dL (11.5-16.0); IMMATURE GRAN ABSOLUTE AUTO 0.05 K/mm3 (0.00-0.10); IMMATURE GRAN PERCENT AUTO 0 % (0-1); LYMPHOCYTES ABSOLUTE AUTO 0.69 K/mm3 (0.84-5.20); LYMPHOCYTES PERCENT AUTO 6 % (21-46); MONOCYTES ABSOLUTE AUTO 0.72 K/mm3 (0.16-1.47); MONOCYTES PERCENT AUTO 6 % (4-13); Mean Corpuscular HGB 31.3 pg (26.0-34.0); Mean Corpuscular HGB Conc 32.1 g/dL (31.5-36.5); Mean Corpuscular Volume 98 fL (80-100); Mean Platelet Volume 11.3 fL (9.1-12.4); NEUTROPHILS ABSOLUTE AUTO 9.95 K/mm3 (1.96-9.15); NEUTROPHILS PERCENT AUTO 87 % (41-73); Platelet Count 215 K/mm3 (150-400); RDW Coefficient Variation 12.9 % (11.7-14.2); RDW Standard Deviation 46.4 fL (35.1-46.3); Red Blood Cell Count 2.68 M/mm3 (3.80-5.20); White Blood Cell Count 11.46 K/mm3 (4.00-11.30)
[2024-09-03 05:36] LABS: Albumin, Blood 2.7 g/dL (3.4-5.0); Anion Gap 13 mmol/L (3-11); Blood Urea Nitrogen 44 mg/dL (8-24); Bun/Creatinine Ratio 6.6 (12.0-20.0); CO2, Blood 29 mmol/L (21-32); Calcium, Blood 8.1 mg/dL (8.5-10.1); Chloride, Blood 99 mmol/L (98-108); Creatinine, Blood 6.71 mg/dL (0.40-1.00); Glomerular Filtration Rate 6 (60-); Glucose, Blood 308 mg/dL (70-99); Phosphorus, Blood 6.2 mg/dL (2.5-4.9); Potassium, Blood 4.6 mmol/L (3.5-5.5); Sodium, Blood 136 mmol/L (136-145)
[2024-09-03] MEDS ORDERED: Insulin Human Lispro 100 Units/ML 3ML Syringe SC SCH (07:30)
[2024-09-03] MEDS ORDERED: Anticoagulant Sod Citrate Soln 3 ML SYR INJ PRN (08:05)
[2024-09-03] MEDS ORDERED: Sevelamer Carbonate 800 MG Tab PO SCH (08:30)
[2024-09-03] MEDS ORDERED: HYDROmorphone HCl 2 MG Tab PO PRN (13:20)
--- NOTE | 2024-09-03 14:00 | NUR ---
SPOKE WITH DR. VELAZQUEZ REGARDING L FOOT IV AND CONCERNS R/T INABILITY TO USE RADHA HOSE AND SCD'S R/T IV PLACEMENT. PER DR. VELAZQUEZ OK FOR L FOOT IV TO BE REMOVED AND IV TO REMAIN OUT. OK FOR TELEMETRY TO BE DISCONTINUED, PT HAS BEEN IN NSR. DR. VELAZQUEZ NOTIFIED THAT PT'S BP MEDS INCLUDING METOPROLOL WERE HELD R/T DIALYSIS. WHEN PT RETURNED FROM DIALYSIS HER BP WAS 72/38, CUFF WAS REPOSITIONED AND PT IMPROVED TO 93/43.
[2024-09-03] MEDS ORDERED: Gabapentin 100 MG Cap PO SCH (14:05)
--- NOTE | 2024-09-03 14:54 | NUR ---
PHANTOM PAIN PT REPORTS INCREASED PAIN TO HER R FOOT, PT HAS A R BKA. PT IS UNSURE IF SHE TAKES GABAPENTIN, HER DAUGHTER RAHAT STATES THAT SHE STOPPED TAKING GABAPENTIN APPROXIMATELY 2 YEARS AGO, SHE DOES NOT REMEMBER THE DOSE BUT STATED IT WAS A LOW DOSE BECAUSE HENRI REPORTED DROWSINESS WITH HIGHER DOSES. DR. VELAZQUEZ NOTIFIED OF PHANTOM PAINS AND ORDERED GABAPENTIN.
--- NOTE | 2024-09-03 19:39 | NUR ---
SHIFT SUMMARY PT IS POD#1 FROM R HIP REPAIR. PT'S PAIN WAS DIFFICULT TO MANAGE THIS AFTERNOON; PT HAS HIP PAIN WITH REPOSITIONING BUT REPORTED INCREASED PHANTOM PAINS TO HER RIGHT LEG. PO DILAUDID AND GABAPENTIN STARTED FOR PAIN MANAGEMENT. PHYSICAL THERAPY ATTEMPTED TO WORK WITH PT THIS AFTERNOON BUT PT DECLINED R/T PAIN. PAIN MANAGEMENT IMPROVED AFTER DILAUDID AND GABAPENTIN WERE GIVEN. PT HAS BEEN FORGETFUL T/O THE DAY, SHE IS ALERT/ORIENTED X3, PT'S FAMILY REPORTS SHE HAS SHORT TERM MEMORY ISSUES. PT TOLERATING FOOD/FLUIDS. NO URINE OUTPUT THIS SHIFT, PT HAD DIALYSIS TODAY. OPTIFOAM DRESSING PLACED ON BUTTOCKS TO PREVENT SKIN BREAKDOWN. PT IS RELUCTANT TO REPOSITION EVEN WHEN PAIN IS MANAGED, PT YELLS OUT DURING REPOSITIONING.
--- NOTE | 2024-09-04 03:33 | NUR ---
SHIFT SUMMARY POD 2 RIGHT GAMMA HIP NAILING. DRESSING CDI. NO ACUTE CHANGES THIS SHIFT. PT SLEPT T/O NIGHT. PT ALLOWING Q2 TURNS. DENIES NEED FOR PAIN MEDICATION. POOR PO INTAKE. PLAN TO WORK WITH THERAPY TODAY. ON 2L NC WITH SPO2 ABOVE 93%. WILL GIVE REPORT TO ONCOMING RN.
[2024-09-04 05:28] VITALS: BP 131/50
[2024-09-04 07:42] VITALS: BP 131/56
--- NOTE | 2024-09-04 10:56 | NUR ---
MORNING NOTE THIS RN ASSUMED CARE AT APPROX 0715. PATIENT ALERT AND ORIENTED X3 - UNCLEAR TO DATE/TIME THIS MORNING. VSS. SBP 130s. MAP >65. DENIES CHEST PAIN, PRESSURE. ON 2L VIA NC, SATs >90%. ATTEMPTED TO TITRATE TO BASELINE ROOM AIR, SATs 86-89%. RR EVEN, UNLABORED. POD 2 R HIP NAILING - DRESSINGS C/D/I. DENIES PAIN AT REST - YELLS OUT WITH ANY MOVEMENT. COMPLETE BEDBATH AND LINEN CHANGE PERFORMED. MEDICATED PER EMAR WITH PO DILAUDID. CURRENTLY WORKING WITH OCCUPATIONAL THERAPY. HAS YET TO AMBULATE OOB POST OP - NORMALLY USES A MOTORIZED WHEELCHAIR FOR MOBILITY. CALL LIGHT IN REACH. DAUGHTER AT BEDSIDE.
[2024-09-04 14:20] VITALS: BP 165/76
--- NOTE | 2024-09-04 16:20 | NUR ---
CASE CONFRENCE. DISCUSSED CASE WITH DR. VELAZQUEZ AND FLEXIBLE NANNY. PATIENT IS NOT WANTING TO GO TO SNF, BUT DR. VELAZQUEZ FEELS THIS WOULD BE IN HER BEST INTEREST TO RETURN TO [facility]. PROVIDER WOULD LIKE US TO HOLD OFF ON CONVERSATION ABOUT HOSPICE AT THIS TIME IT WOULD NOT BE APPROPRIATE AT THIS TIME GIVEN HER CONVERSATIONS UP TO DATE WITH THIS PATIENT.
--- NOTE | 2024-09-04 17:33 | NUR ---
SHIFT SUMMARY NO ACUTE CHANGES SINCE MORNING NOTE. PATIENT REMAINS ALERT AND ORIENTED X3 - FORGETFUL. YELLS WITH STIMULI. EPISODES OF BUE TREMOR AND SPASTIC MOVEMENTS - BASELINE PER PATIENT AND HER DAUGHTER. VSS. SBP 130s-160s. SCHEDULED HTN MEDICATIONS ADMINISTERED PER EMAR. DENIES CHEST PAIN, PRESSURE. REMAINS ON 2L VIA NC, SATs >90%. ENCOURAGING TO COUGH AND DEEP BREATH. POD 2 R HIP NAILING - DRESSING C/D/I. WORKED WITH PHYSICAL AND OCCUPATIONAL THERAPY - SAT ON SIDE OF BED WITH 2P MAX ASSIST. PUREWICK AND ATTENDS IN PLACE - VOIDING. COMPLETE BEDBATH PERFORMED. ENCOURAGING REPOSITIONING IN BED TOLERATED. CALL LIGHT IN REACH.
[2024-09-04 20:31] VITALS: BP 163/67
[2024-09-04] MEDS ORDERED: Apixaban 5 MG Tab PO SCH (21:00)
[2024-09-05] VITALS (20 sets, daily range): BP systolic 67–179; BP diastolic 37–71
--- NOTE | 2024-09-05 02:26 | NUR ---
TRANSFER OF CARE TRANSFER FROM UNIT TO MEDICAL AT THIS TIME. NO ACUTE CHANGES SINCE START OF SHIFT. POD #3 RIGHT HIP GAMMA NAILING. DRESSING CDI, ICE APPLIED MIGUELINA. ON 2L NC, SPO2 ABOVE 93%. DENIES SOB. PT A/OX2-3, ABLE TO FOLLOW INSTRUCTIONS. POOR TOLERANCE WITH POSITION CHANGES. BASELINE TREMORS NOTED WITH MOVEMENT AND VITAL ASSESSMENT. Q2 TURN. DRESSINGS REPLACED TO RIGHT ABD FOLD AND STUMP. BORDERED FOAMS TO RIGHT ELBOW AND COCCYX CDI. POOR PO INTAKE. VOID X 1, PURWICK IN PLACE- URINE YELLOW AND CLEAR. PT APPEARS TO HAVE RESTED WELL THROUGHT SHIFT WITH RESP EVEN AND UNLABORED. PT TRANSFER VIA HOSPITAL BED AND STAFF. RAHAT, PATIENT'S DAUGHTER, NOTIFIED OF TRANSFER. REPORT CALLED TO NURSE ASSUMING CARE, JONATHON
--- NOTE | 2024-09-05 06:38 | NUR ---
SHIFT SUMMARY RECIEVED PT FROM SURGICAL UNIT. PT HAS BEEN AOX3. SHE IS ON BEDREST, WITH ACTIVITY AD YENNIFER. HOWEVER, PT DOES NOT TOLERATE ACTIVITY AT THIS TIME, OFTEN CRYING OUT WHEN TURNING. PT IS ON 2LNC. PT'S SURGICAL SITES ARE CLEAN, DRY AND INTACT. NO ACUTE EVENTS OVERNIGHT.
[2024-09-05] MEDS ORDERED: Anticoagulant Sod Citrate Soln 3 ML SYR INJ PRN (07:15)
[2024-09-05 08:57] LABS: BASOPHILS PERCENT AUTO 1 % (0-2); EOSINOPHILS ABSOLUTE AUTO 0.54 K/mm3 (0.00-0.68); EOSINOPHILS PERCENT AUTO 5 % (0-6); Hematocrit 23.5 % (33.0-51.0); Hemoglobin 7.7 g/dL (11.5-16.0); IMMATURE GRAN ABSOLUTE AUTO 0.06 K/mm3 (0.00-0.10); IMMATURE GRAN PERCENT AUTO 1 % (0-1); LYMPHOCYTES ABSOLUTE AUTO 2.76 K/mm3 (0.84-5.20); LYMPHOCYTES PERCENT AUTO 26 % (21-46); MONOCYTES ABSOLUTE AUTO 0.83 K/mm3 (0.16-1.47); MONOCYTES PERCENT AUTO 8 % (4-13); Mean Corpuscular HGB 31.4 pg (26.0-34.0); Mean Corpuscular HGB Conc 32.8 g/dL (31.5-36.5); Mean Corpuscular Volume 96 fL (80-100); Mean Platelet Volume 10.8 fL (9.1-12.4); NEUTROPHILS ABSOLUTE AUTO 6.15 K/mm3 (1.96-9.15); NEUTROPHILS PERCENT AUTO 59 % (41-73); Platelet Count 231 K/mm3 (150-400); RDW Coefficient Variation 12.8 % (11.7-14.2); RDW Standard Deviation 44.8 fL (35.1-46.3); Red Blood Cell Count 2.45 M/mm3 (3.80-5.20); White Blood Cell Count 10.44 K/mm3 (4.00-11.30)
[2024-09-05 09:32] LABS: Calcium, Blood 7.8 mg/dL (8.5-10.1); Creatinine, Blood 5.92 mg/dL (0.40-1.00); Potassium, Blood 4.9 mmol/L (3.5-5.5)
--- NOTE | 2024-09-05 17:34 | NUR ---
SHIFT SUMMARY PT IS A/OX3. LIFT PT. PT COMPLETED DIALYSIS THIS MORNING. PURWICK IN PLACE DRAINING CASSIUS COLOERED URINE, OLIGURIA NOTED. PURWICK IN PLACE D/T PT'S LIMITED TOLERANCE TO TURNING IN BED IN ORDER TO CHANGE ATTENDS D/T PAIN TO THE RIGHT HIP SURGICAL SITE. PT IS INCONT OF BOWELS AND BLADDER. PT ON 2L NC AT THE START OF THIS SHIFT, SATS >95%, PT TAKEN OFF O2 THIS AFTERNOON, PT REPORTS NO O2 USE AT BASELINE. PT DENIES FEELING SOB, O2 SATS MAINTAINING >90%. PT SLEPT FOR MUCH OF THE DAY.
[2024-09-05] MEDS ORDERED: Acetaminophen 325 MG TABLET PO PRN (21:40)
[2024-09-05] MEDS ORDERED: Polyethylene Glycol 3350 17 gm PO PRN (21:40)
[2024-09-05] MEDS ORDERED: Magnesium Hydroxide Conc 10 ML UDC PO PRN (21:40)
[2024-09-05] MEDS ORDERED: Bisacodyl 10 MG Supp PR PRN (21:40)
--- NOTE | 2024-09-06 00:20 | NUR ---
CONTINUOUS BIOX PLACED ON PT AT 0000 PER PRIMARY RN.
[2024-09-06 04:49] VITALS: BP 137/58
[2024-09-06 05:02] LABS: BASOPHILS ABSOLUTE AUTO 0.11 K/mm3 (0.00-0.23); BASOPHILS PERCENT AUTO 1 % (0-2); EOSINOPHILS ABSOLUTE AUTO 0.44 K/mm3 (0.00-0.68); EOSINOPHILS PERCENT AUTO 5 % (0-6); Hematocrit 23.6 % (33.0-51.0); Hemoglobin 7.7 g/dL (11.5-16.0); IMMATURE GRAN ABSOLUTE AUTO 0.03 K/mm3 (0.00-0.10); IMMATURE GRAN PERCENT AUTO 0 % (0-1); LYMPHOCYTES ABSOLUTE AUTO 2.95 K/mm3 (0.84-5.20); LYMPHOCYTES PERCENT AUTO 30 % (21-46); MONOCYTES ABSOLUTE AUTO 0.98 K/mm3 (0.16-1.47); MONOCYTES PERCENT AUTO 10 % (4-13); Mean Corpuscular HGB 31.4 pg (26.0-34.0); Mean Corpuscular HGB Conc 32.6 g/dL (31.5-36.5); Mean Corpuscular Volume 96 fL (80-100); Mean Platelet Volume 10.5 fL (9.1-12.4); NEUTROPHILS ABSOLUTE AUTO 5.36 K/mm3 (1.96-9.15); NEUTROPHILS PERCENT AUTO 54 % (41-73); Platelet Count 248 K/mm3 (150-400); RDW Coefficient Variation 12.7 % (11.7-14.2); RDW Standard Deviation 44.5 fL (35.1-46.3); Red Blood Cell Count 2.45 M/mm3 (3.80-5.20); White Blood Cell Count 9.87 K/mm3 (4.00-11.30)
--- NOTE | 2024-09-06 05:21 | NUR ---
CARPENTER HELPER MAINTENANCE SUMMARY PT A/OX3. FLAT/WITHDRAWN AFFECT. PT NOT FREELY ANSWERING QUESTIONS, PT SLOW TO RESPOND AND REQUIRES EFFORT TO DRAW OUT ANSWERS. PT REPORTING 3/10 PAIN IN RIGHT HIP AT REST. CALL TO HOSPITALIST; NEW ORDER FOR TYLENOL. PT DECLINED TYLENEOL WHEN ASSESSED/OFFERED. PER DAY SHIFT; PT WAS ON ROOM AIR FOR THE DAY AND SATTING ABOVE 90%. AT START OF SHIFT ASSESSMENT PT WAS FOUND TO BE SLEEPY AND OXYGEN SATING AT 86%. 2LPM O2 APPLIED. CONT BIOX HAD BEEN ORDERED BUT NOT IN PLACE. BIOX MACHINE NOT AVAILABLE ON THE MED FLOOR. CALL TO RT TO LOCATE; RT TO LOOK ON SURGICAL FLOOR. BIOX LATER FOUND AND PUT IN PLACE. PT SATING ABOVE 90% ON 2LPM. EDUCATED PT ON NEED FOR REPOSITIONING TO PREVENT PRESSURE ULCERS. PT WAS RESISTANT TO MOVEMENT. DISCUSSED PAIN MANAGEMENT TO TOLERATE MOVEMENT. PT DECLINED TYLENOL/PAIN MED. ABLE TO SLIGHLY REPOSITION PT. DRESSING TO RIGHT HIP CDI. CALL LIGHT ACCESSIBLE. REGULAR INTERVAL ROUNDING COMPLETE. CARE WILL CONTINUE UNTIL REPORT GIVEN TO ONCOMING NURSE.
[2024-09-06 05:53] LABS: Bun/Creatinine Ratio 9.1 (12.0-20.0); Calcium, Blood 8.1 mg/dL (8.5-10.1); Creatinine, Blood 4.05 mg/dL (0.40-1.00); Potassium, Blood 4.5 mmol/L (3.5-5.5)
[2024-09-06 07:18] VITALS: BP 159/64
[2024-09-06] MEDS ORDERED: Sennosides 8.6 MG Tab PO SCH (09:00)
[2024-09-06] MEDS ORDERED: Docusate Sodium 100 MG Cap PO SCH (09:00)
[2024-09-06 13:43] VITALS: BP 160/61
[2024-09-06 14:43] VITALS: BP 160/64
[2024-09-06] MEDS ORDERED: BISA10S PR (16:06)
[2024-09-06] MEDS ORDERED: GABA100 PO (16:07)
[2024-09-06] MEDS ORDERED: DOC250 PO (16:07)
[2024-09-06] MEDS ORDERED: HYDMOR2 PO (16:08)
[2024-09-06] MEDS ORDERED: SENN187 PO (16:09)
[2024-09-06] MEDS ORDERED: SEVEC800 PO (16:10)
--- NOTE | 2024-09-06 16:29 | NUR ---
REPORT CALLED TO NURSE AT [facility]. PT IS CURRENTLY RESTING IN BED. NO ACUTE CHANGES THROUGHOUT THIS SHIFT. SLEPT FOR MUCH OF THE DAY. ON RA, SATS >95% USING CONTINUOUS PULSE OX. PURWICK IN PLACE D/T LIMITED TOLERANCE TO TURNING IN BED D/T PAIN AND INCONTINENCE.
--- NOTE | 2024-09-06 17:10 | NUR ---
PT DISCHARGED TO [facility]IA [facility]. DAUGHTER AT BEDSIDE AT TIME OF DISCHARGE. ALL VALUABLES RETURNED AND SENT WITH THE PT AND DAUGHTER.
[2024-09-08] MEDS ORDERED: Epoetin Alfa-EPBX 10,000 Unit/ML 1ML Vial IV SCH (09:00)
== END 2024-09-06 17:07 | DRG 480 ==
LOC: ER 20:12 → ERHOLD 22:30 → SURS 22:30 → MEDS 09-05 02:30
PROVIDERS: Internal Medicine; Orthopaedic Surgery; Student in an Organized Health Care Education/Training Program; ADMIT Internal Medicine
PROC: 0QS636Z Reposition Right Upper Femur with Intramedullary Internal Fixation Device, Percutaneous Approach (ICD-10-PCS; principal; 2024-09-02 13:00)
PROC: 5A1D70Z Performance of Urinary Filtration, Intermittent, Less than 6 Hours Per Day (ICD-10-PCS; 2024-09-03)
DX: S72.141A Displaced intertrochanteric fracture of right femur, initial encounter for closed fracture (principal); N18.6 End stage renal disease; I12.0 Hypertensive chronic kidney disease with stage 5 chronic kidney disease or end stage renal disease; Z68.42 Body mass index [BMI] 45.0-49.9, adult; E66.01 Morbid (severe) obesity due to excess calories; J44.89 Other specified chronic obstructive pulmonary disease; F32.9 Major depressive disorder, single episode, unspecified; E11.51 Type 2 diabetes mellitus with diabetic peripheral angiopathy without gangrene; D63.1 Anemia in chronic kidney disease; E11.22 Type 2 diabetes mellitus with diabetic chronic kidney disease; E83.39 Other disorders of phosphorus metabolism; Z99.2 Dependence on renal dialysis; Z86.73 Personal history of transient ischemic attack (TIA), and cerebral infarction without residual deficits; Z89.511 Acquired absence of right leg below knee; V00.141A Fall from scooter (nonmotorized), initial encounter; Z88.5 Allergy status to narcotic agent; Z91.040 Latex allergy status; Z79.82 Long term (current) use of aspirin; Z79.01 Long term (current) use of anticoagulants; Z79.4 Long term (current) use of insulin; Z79.85 Long-term (current) use of injectable non-insulin antidiabetic drugs; Z86.16 Personal history of COVID-19
CPT/HCPCS: 36415; 72170; 72192; 73552; 80048; 80053; 80069; 82947; 83880; 85025; 85610; 85730; 93005; 93010; 94760; 94762; 96374; 97110; 97162; 97166; 97530; 99285-25; A9270; C1713; C1769; J0171; J0690; J1100; J1171; J1885; J2003; J2371; J2405; J2704; J2795; J3010; J7030

== ENCOUNTER 2024-09-14 01:02 | Inpatient (IN) | payer OTHER ==
[~2024-09-14] VITALS: Ht 165.1 cm; Wt 107.6 kg
[2024-09-14] VITALS (16 sets, daily range): BP systolic 84–204; BP diastolic 38–122
[~2024-09-14 01:02] MED LIST changes: -ARTIFICIAL TEAR15 M6; +ARTIFICIAL TEAR15 M6 BOTHEYES; +BISA10S PR; +DOC250 PO; +GABA100 PO; +HYDMOR2 PO; +SENN187 PO; +SEVEC800 PO
[2024-09-14 01:39] LABS: BASOPHILS ABSOLUTE AUTO 0.16 K/mm3 (0.00-0.23); BASOPHILS PERCENT AUTO 1 % (0-2); EOSINOPHILS PERCENT AUTO 3 % (0-6); Hematocrit 24.2 % (33.0-51.0); Hemoglobin 7.8 g/dL (11.5-16.0); IMMATURE GRAN ABSOLUTE AUTO 0.07 K/mm3 (0.00-0.10); IMMATURE GRAN PERCENT AUTO 1 % (0-1); LYMPHOCYTES ABSOLUTE AUTO 3.31 K/mm3 (0.84-5.20); LYMPHOCYTES PERCENT AUTO 28 % (21-46); MONOCYTES ABSOLUTE AUTO 0.82 K/mm3 (0.16-1.47); MONOCYTES PERCENT AUTO 7 % (4-13); Mean Corpuscular HGB 31.5 pg (26.0-34.0); Mean Corpuscular HGB Conc 32.2 g/dL (31.5-36.5); Mean Corpuscular Volume 98 fL (80-100); NEUTROPHILS ABSOLUTE AUTO 7.13 K/mm3 (1.96-9.15); NEUTROPHILS PERCENT AUTO 60 % (41-73); Platelet Count 377 K/mm3 (150-400); RDW Coefficient Variation 12.7 % (11.7-14.2); RDW Standard Deviation 44.8 fL (35.1-46.3); Red Blood Cell Count 2.48 M/mm3 (3.80-5.20); White Blood Cell Count 11.89 K/mm3 (4.00-11.30)
[2024-09-14 02:25] LABS: Alanine Aminotransfer (ALT/SGP <6 U/L (12-78); Albumin, Blood 2.4 g/dL (3.4-5.0); Albumin/Globulin Ratio 0.6 (0.8-1.8); Alk Phos 89 U/L (50-136); Anion Gap 11 mmol/L (3-11); Aspartate Aminotrans (AST/SGOT 24 U/L (12-37); Bilirubin, Total 0.4 mg/dL (0.1-1.0); Blood Urea Nitrogen 46 mg/dL (8-24); Bun/Creatinine Ratio 9.9 (12.0-20.0); CO2, Blood 32 mmol/L (21-32); Calcium, Blood 8.7 mg/dL (8.5-10.1); Chloride, Blood 96 mmol/L (98-108); Creatinine, Blood 4.63 mg/dL (0.40-1.00); Globulin, Blood 3.9 g/dL (2.2-4.0); Glomerular Filtration Rate 10 (60-); Glucose, Blood 146 mg/dL (70-99); Potassium, Blood 4.5 mmol/L (3.5-5.5); Sodium, Blood 134 mmol/L (136-145); Total Protein, Blood 6.3 g/dL (6.4-8.2)
[2024-09-14] MEDS ORDERED: CefTRIAXone Sodium 2,000 MG in NS 50 ML IV ONE (02:25)
[2024-09-14] MEDS ORDERED: Magnesium Hydroxide Conc 10 ML UDC PO PRN (04:35)
[2024-09-14] MEDS ORDERED: Ondansetron 4 MG TAB PO PRN (04:40)
[2024-09-14] MEDS ORDERED: FLU VACC TS2024-25(6MOS UP)/PF 45 MCG/0.5 ML SYRINGE IM ONE (04:40)
[2024-09-14] MEDS ORDERED: NS 1,000 ML IV SCH ×2 (05:00)
[2024-09-14] MEDS ORDERED: Peg 400/Hypromellose/Glycerin 15 DROP/ML BTL BOTHEYES PRN (05:15)
[2024-09-14] MEDS ORDERED: Polyethylene Glycol 3350 17 gm PO PRN (05:20)
[2024-09-14] MEDS ORDERED: Melatonin 3 MG Tab PO PRN (05:20)
[2024-09-14] MEDS ORDERED: Acetaminophen 325 MG TABLET PO PRN (05:20)
[2024-09-14] MEDS ORDERED: Insulin Human Lispro 100 Units/ML 3ML Syringe SC SCH (07:30)
[2024-09-14] MEDS ORDERED: Sevelamer Carbonate 800 MG Tab PO SCH (08:30)
[2024-09-14] MEDS ORDERED: HydrALAZINE HCl 50 MG Tab PO SCH (09:00)
[2024-09-14] MEDS ORDERED: Sennosides 8.6 MG Tab PO SCH (09:00)
[2024-09-14] MEDS ORDERED: Lactobacil 2-S.Thermo-Bifido 1 1 Cap PO SCH (09:00)
[2024-09-14] MEDS ORDERED: Metoprolol Tartrate 50 MG Tab PO SCH (09:00)
[2024-09-14] MEDS ORDERED: Lisinopril 20 MG Tab PO SCH (09:00)
[2024-09-14] MEDS ORDERED: Apixaban 5 MG Tab PO SCH (09:00)
[2024-09-14 09:26] LABS: BASOPHILS ABSOLUTE AUTO 0.18 K/mm3 (0.00-0.23); BASOPHILS PERCENT AUTO 2 % (0-2); EOSINOPHILS ABSOLUTE AUTO 0.47 K/mm3 (0.00-0.68); EOSINOPHILS PERCENT AUTO 4 % (0-6); Hematocrit 25.2 % (33.0-51.0); IMMATURE GRAN ABSOLUTE AUTO 0.07 K/mm3 (0.00-0.10); IMMATURE GRAN PERCENT AUTO 1 % (0-1); LYMPHOCYTES ABSOLUTE AUTO 3.09 K/mm3 (0.84-5.20); LYMPHOCYTES PERCENT AUTO 26 % (21-46); MONOCYTES ABSOLUTE AUTO 0.77 K/mm3 (0.16-1.47); MONOCYTES PERCENT AUTO 7 % (4-13); Mean Corpuscular HGB 30.9 pg (26.0-34.0); Mean Corpuscular HGB Conc 31.7 g/dL (31.5-36.5); Mean Corpuscular Volume 97 fL (80-100); NEUTROPHILS ABSOLUTE AUTO 7.21 K/mm3 (1.96-9.15); NEUTROPHILS PERCENT AUTO 61 % (41-73); Platelet Count 408 K/mm3 (150-400); RDW Coefficient Variation 12.6 % (11.7-14.2); RDW Standard Deviation 44.3 fL (35.1-46.3); Red Blood Cell Count 2.59 M/mm3 (3.80-5.20); White Blood Cell Count 11.79 K/mm3 (4.00-11.30)
[2024-09-14 09:49] LABS: Albumin, Blood 2.5 g/dL (3.4-5.0); Albumin/Globulin Ratio 0.6 (0.8-1.8); Bilirubin, Total 0.3 mg/dL (0.1-1.0); Calcium, Blood 8.3 mg/dL (8.5-10.1); Creatinine, Blood 4.89 mg/dL (0.40-1.00); Potassium, Blood 4.3 mmol/L (3.5-5.5); Total Protein, Blood 6.5 g/dL (6.4-8.2)
--- NOTE | 2024-09-14 18:16 | NUR ---
SHIFT SUMMARY PT AOX2, MENTATION IMPROVING THIS SHIFT. DIALYSIS TODAY AND PT TOLERATED IT WELL. NO ACUTE COMPLAINTS. PT'S BRIEF CHANGED NEEDED. REPOSITIONED THROUGHOUT THE SHIFT. MEPALEX TO COCCYX CHANGED AFTER A SMALL BM. DRESSING TO R HIP C/D/I. PT SLEPT MOST OF THE DAY BUT IS MORE ALERT THIS EVENING. CALL LIGHT WITHIN REACH, BED LOCKED AND IN THE LOWEST POSITION. WILL REPORT TO ONCOMING NURSE.
[2024-09-14] MEDS ORDERED: Venlafaxine HCl 75 MG CapCR PO SCH (21:00)
[2024-09-15 04:31] VITALS: BP 164/59
[2024-09-15] MEDS ORDERED: Ampicillin Sod/Sulbactam Sod 1.5 GM in NS 100 ML IV SCH (06:00)
[2024-09-15] MEDS ORDERED: CefTRIAXone Sodium 2,000 MG in NS 100 ML IV SCH (06:00)
[2024-09-15 06:23] LABS: BASOPHILS ABSOLUTE AUTO 0.13 K/mm3 (0.00-0.23); BASOPHILS PERCENT AUTO 1 % (0-2); EOSINOPHILS ABSOLUTE AUTO 0.39 K/mm3 (0.00-0.68); EOSINOPHILS PERCENT AUTO 4 % (0-6); Hematocrit 22.3 % (33.0-51.0); Hemoglobin 7.1 g/dL (11.5-16.0); IMMATURE GRAN ABSOLUTE AUTO 0.08 K/mm3 (0.00-0.10); IMMATURE GRAN PERCENT AUTO 1 % (0-1); LYMPHOCYTES ABSOLUTE AUTO 2.08 K/mm3 (0.84-5.20); LYMPHOCYTES PERCENT AUTO 19 % (21-46); MONOCYTES ABSOLUTE AUTO 0.67 K/mm3 (0.16-1.47); MONOCYTES PERCENT AUTO 6 % (4-13); Mean Corpuscular HGB Conc 31.8 g/dL (31.5-36.5); Mean Corpuscular Volume 97 fL (80-100); Mean Platelet Volume 10.1 fL (9.1-12.4); NEUTROPHILS ABSOLUTE AUTO 7.71 K/mm3 (1.96-9.15); NEUTROPHILS PERCENT AUTO 70 % (41-73); Platelet Count 380 K/mm3 (150-400); RDW Standard Deviation 45.2 fL (35.1-46.3); Red Blood Cell Count 2.29 M/mm3 (3.80-5.20); White Blood Cell Count 11.06 K/mm3 (4.00-11.30)
--- NOTE | 2024-09-15 06:48 | NUR ---
SHIFT SUMMARY PT ALERT AND ORIENTED TIMES 2. PT IS INCONTINENT OF BOWEL AND URINE. PT IS 2 PERSON Q2 TURN. RBKA AND RECENT RT HIP FRACTURE. PT TAKES MEDS WHOLE WITH WATER AND DOES NOT HAVE TELE. PT APPEARED TO SLEEP THROUGH THE NIGHT WITHOUT ISSUE. PT IS RECEPTIVE TO CARE.BED IN LOW POSITION, CALL LIGHT WITHIN REACH, RAILS TIMES 2.
[2024-09-15 07:03] LABS: Albumin, Blood 3.1 g/dL (3.4-5.0); Albumin/Globulin Ratio 0.9 (0.8-1.8); Bilirubin, Total 0.4 mg/dL (0.1-1.0); Bun/Creatinine Ratio 8.5 (12.0-20.0); Calcium, Blood 8.4 mg/dL (8.5-10.1); Creatinine, Blood 3.55 mg/dL (0.40-1.00); Globulin, Blood 3.5 g/dL (2.2-4.0); Percent Saturation 19.2 % (15.0-50.0); Potassium, Blood 4.2 mmol/L (3.5-5.5); Total Protein, Blood 6.6 g/dL (6.4-8.2)
[2024-09-15 07:53] VITALS: BP 157/65
[2024-09-15] MEDS ORDERED: Heparin Sodium 5000 Units/ML 1ML MDV SC SCH (09:00)
[2024-09-15 14:07] VITALS: BP 163/57
[2024-09-15] MEDS ORDERED: CIPR500 PO (14:53)
[2024-09-15 15:50] VITALS: BP 173/70
--- NOTE | 2024-09-15 16:19 | NUR ---
PT IS A/OX3 TODAY, ANSWERS QUESTIONS APPROPRIATLY. PT HAS BEEN BED REST ABLE TO REPOSITION HERSELF IN THE BED. PT IS BREATHING EASILY ON RA AT THIS TIME. PT WAS TO BE DISCHARGED TODAY BACK TO [facility] , HOWEVER IS AWAITING AUTHERIZATION AT THIS TIME. POSSIBLE DC TOMORROW. SHE IS A HD PATIENT NO DIALYSIS TODAY. FAMILY WAS IN TO SEE THE PATIENT TODAY. PT HAS AQUACELL DRESSINGS IN PLACE ON THE RIGHT HIP. CALL LIGHT IN REACH
--- NOTE | 2024-09-15 17:37 | NUR ---
ASSUMED CARE OF PATIENT, PT LYING IN BED WITH EYES CLOSED RESP RATE 14
--- NOTE | 2024-09-15 18:43 | NUR ---
PT EATING DINNER, DENIES ANY NEEDS
[2024-09-15 20:47] VITALS: BP 177/57
[2024-09-16 03:17] VITALS: BP 189/72
[2024-09-16 03:37] VITALS: BP 174/65
--- NOTE | 2024-09-16 05:03 | NUR ---
SHIFT SUMMARY PATIENT IS ALERT AND ORIENTED X2 THIS SHIFT. PATIENT HAS HAD NO ACUTE EVENTS THIS SHIFT. VITAL SIGNS REVIEWED. PATIENT HAS REPORTED NO PAIN, NAUSEA, SOB OR VOMITTING THIS SHIFT. PATIENT HAS HAD A BM THIS SHIFT. BED IN LOCKED AND LOWEST POSITION. CALL LIGHT IN PLACE. WILL MONITOR UNTIL SHIFT CHANGE.
[2024-09-16 06:32] LABS: BASOPHILS ABSOLUTE AUTO 0.13 K/mm3 (0.00-0.23); BASOPHILS PERCENT AUTO 1 % (0-2); EOSINOPHILS ABSOLUTE AUTO 0.46 K/mm3 (0.00-0.68); EOSINOPHILS PERCENT AUTO 4 % (0-6); Hematocrit 22.6 % (33.0-51.0); Hemoglobin 7.4 g/dL (11.5-16.0); IMMATURE GRAN ABSOLUTE AUTO 0.06 K/mm3 (0.00-0.10); IMMATURE GRAN PERCENT AUTO 1 % (0-1); LYMPHOCYTES ABSOLUTE AUTO 2.93 K/mm3 (0.84-5.20); LYMPHOCYTES PERCENT AUTO 26 % (21-46); MONOCYTES ABSOLUTE AUTO 0.77 K/mm3 (0.16-1.47); MONOCYTES PERCENT AUTO 7 % (4-13); Mean Corpuscular HGB 32.2 pg (26.0-34.0); Mean Corpuscular HGB Conc 32.7 g/dL (31.5-36.5); Mean Corpuscular Volume 98 fL (80-100); Mean Platelet Volume 9.9 fL (9.1-12.4); NEUTROPHILS ABSOLUTE AUTO 6.73 K/mm3 (1.96-9.15); NEUTROPHILS PERCENT AUTO 61 % (41-73); Platelet Count 407 K/mm3 (150-400); RDW Standard Deviation 45.8 fL (35.1-46.3); White Blood Cell Count 11.08 K/mm3 (4.00-11.30)
[2024-09-16 07:13] LABS: Bun/Creatinine Ratio 10.8 (12.0-20.0); Calcium, Blood 8.7 mg/dL (8.5-10.1); Creatinine, Blood 4.35 mg/dL (0.40-1.00); Potassium, Blood 4.5 mmol/L (3.5-5.5)
[2024-09-16 08:15] VITALS: BP 180/58
[2024-09-16] MEDS ORDERED: CefTRIAXone Sodium 1,000 MG in NS 100 ML IV SCH (09:00)
[2024-09-16] MEDS ORDERED: Epoetin Alfa-EPBX 10,000 Unit/ML 1ML Vial SC SCH (09:00)
[2024-09-16 15:58] VITALS: BP 185/114
--- NOTE | 2024-09-16 20:07 | NUR ---
SUMMARY- PT A/O X3, PLEASANTLY CONFUSED, USES CALL LIGHT. INCONT B/B, CHANGED ATTENDS ROUTINELY. AQUACEL INTACT TO R HIP. PT DENIES PAIN. PT ABLE TO AID STAFF IN TURNS. TOLERATING FOOD AND FLUID. NO DIALYSIS TODAY BUT LIKELY TOMORROW. PLAN FOR DC TO SNF LIKELY TOMORROW, REPORTED TO NOC CASTRO
[2024-09-16] MEDS ORDERED: Arginine/Glutamine/Calcium Hmb 1 Packet PO SCH (21:00)
[2024-09-16 21:03] VITALS: BP 174/57
[2024-09-17] VITALS (16 sets, daily range): BP systolic 83–214; BP diastolic 42–92
--- NOTE | 2024-09-17 04:29 | NUR ---
SHIFT SUMMARY PATIENT IS ALERT AND ORIENTED X3. PATIENT HAS HAD NO ACUTE EVENTS THIS SHIFT. VITAL SIGNS REVIEWED. PATIENT HAS NO COMPLAINTS OF PAIN, SOB, NAUSEA OR VOMITTING. PATIENT HAS BEEN SLEEPING MOST OF SHIFT. CBG IS WELL CONTROLLED. PATIENT IS LOOKING FORWARD TO DISCHARGING TODAY.
--- NOTE | 2024-09-17 16:21 | NUR ---
MET WITH PATIENT AND DISCUSSED CODE STATUS WITH PATIENT AND HER DAUGHTER RAHAT VIA PHONE. FILLED OUT A POLST OVER THE PHONE. ELECTED FOR DNR AND SELECTIVE TREATMENT. RAHAT WILL REVIEW POLST AFTER WORK AND SIGN. UPDATED PROVIDER AND CODE STATUS CHANGED
--- NOTE | 2024-09-17 18:19 | NUR ---
[address] CANALES THAT THIS RN HELD ALL BP MEDS THIS AM PER REQUEST OF DRAFTER CONSTRUCTION. BP DROPPED DURING DIALYSIS AND CAME BACK UP AND AT 1440 PB 164/164, MEDICATED WITH ROUTINE ORDERED HYDREALZINE. OVER THE PAST 2 DAYS, THIS RN NOTED PT TO HAVE JERKING MOTIONS WHEN FIRST AWAKENED, ALSO FACIAL CONTORTIONS, APPEARING SIEZURE/JERKING, RESOLVES AFTER 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 DAUGHTER WHO IS GAURDIAN, DECLINED THE HEAD CT STATING PT'S NEURO STATUS APPEARS NORMAL TO HER. CANCELED CT AND CALLED TO NOTIFY DR CANALES
--- NOTE | 2024-09-17 18:26 | NUR ---
SUMMARY- PT A/O X3, USES CALL LIGHT TO MAKE NEEDS KNOWN. PT HAD DIALYSIS FROM 04-17 PULLED OFF 2L OF FLUID. BLOOD PRESURE DROPPED SIGNIFICANTLY BUT CAME UP SOON AFTER HD STOPPED. (HELD ALL BP MEDS PRE HE) PT HAS BEEN ON BEDREST. INCONT URINE, USING ATTENDS, TURN Q2. R GROIN EXCORIATED AREA, APPLIED ZINC CREAM. TOLERATING FOOD AND FLUID, FEEDS SELF WITH SET UP. R HIP AQUACEL INTACT, ONE DRESSING FELL OFF, LOUIE INTACT, NO DRAINAGE. WILL ADRESS GETTING LOUIE OUT TOMORROW. BLOOD SUGARS FOLLOWED AND COVERING WITH SSI. DAUGHTER CAME TO VISIT PT IN THE EVENING. PLAN FOR PT TO GO BACK TO [facility] WHEN MEDICALLY STABLE. WILL REPORT TO MARISELA ERAZO
--- NOTE | 2024-09-17 19:20 | NUR ---
SUMMARY- PT A/OX3-4, USES CALL LIGHT TO MAKE NEEDS KNOWN. UP TO CHAIR WITH MEALS 1 SBA, SLOW RELATED TO BACK PAIN. PAIN CONTROLLED WITH ULTRAM 50MG QP. WORKED WITH PT/OT TODAY. TOLERATING FOOD AND FLUID. VSS. DAUGHTER AND NEICE FROM [facility] HERE MOST OF THE DAY, VISITING. PLAN FOR PT BE DC'D TO [facility] TOMORROW. REPORTED TO NOC CASTRO BOUCHER
[2024-09-17] MEDS ORDERED: HydrALAZINE HCl 25 MG Tab PO SCH (21:00)
[2024-09-18] VITALS (7 sets, daily range): BP systolic 153–204; BP diastolic 54–72
--- NOTE | 2024-09-18 04:12 | NUR ---
SHIFT SUMMARY PATIENT HAD NO ACUTE CHANGES. AXOX 3-4 AND BEDREST WITH RIGHT HIP FX AND R BKA. CBG 167. DENIES CHEST PAIN, SOB, AND N/V. HYPERTENSIVE BEFORE NIGHT BP MEDS. PERMA CATH RU CHEST. CALL LIGHT IN REACH. BED IN LOWEST POSITION. WILL CONTINUE TO MONITOR UNTIL DAY SHIFT NURSE ASSUMES CARE
[2024-09-18 05:26] LABS: Base Excess Venous 8.7 mmol/L; Bicarbonate Venous 31.6 mmol/L (24.0-30.0); PCO2 Venous 48.4 mmHg (38-42); pH Blood Venous 7.44 (7.34-7.37)
[2024-09-18 05:48] LABS: Hematocrit 23.5 % (33.0-51.0); Hemoglobin 7.7 g/dL (11.5-16.0); Mean Corpuscular HGB 31.4 pg (26.0-34.0); Mean Corpuscular HGB Conc 32.8 g/dL (31.5-36.5); Mean Corpuscular Volume 96 fL (80-100); Mean Platelet Volume 9.6 fL (9.1-12.4); Platelet Count 438 K/mm3 (150-400); RDW Coefficient Variation 12.9 % (11.7-14.2); RDW Standard Deviation 43.9 fL (35.1-46.3); Red Blood Cell Count 2.45 M/mm3 (3.80-5.20); White Blood Cell Count 10.81 K/mm3 (4.00-11.30)
[2024-09-18 06:28] LABS: Albumin, Blood 2.9 g/dL (3.4-5.0); Anion Gap 10 mmol/L (3-11); Blood Urea Nitrogen 44 mg/dL (8-24); Bun/Creatinine Ratio 11.4 (12.0-20.0); CO2, Blood 31 mmol/L (21-32); Calcium, Blood 8.2 mg/dL (8.5-10.1); Chloride, Blood 100 mmol/L (98-108); Creatinine, Blood 3.85 mg/dL (0.40-1.00); Glomerular Filtration Rate 12 (60-); Glucose, Blood 119 mg/dL (70-99); Magnesium, Blood 2.3 mg/dL (1.6-2.4); Phosphorus, Blood 3.3 mg/dL (2.5-4.9); Potassium, Blood 4.3 mmol/L (3.5-5.5); Sodium, Blood 137 mmol/L (136-145)
[2024-09-18] MEDS ORDERED: NS 250 ML IV PRN (08:55)
--- NOTE | 2024-09-18 16:22 | NUR ---
PROVIDER SIGNED POLST, SENT TO REGISTRY AND MEDICAL RECORDS
--- NOTE | 2024-09-18 17:27 | NUR ---
SHIFT SUMMARY PT A&OX4, TOLERATING PO, VOIDING, AND DENIED PAIN. PT HYPERTENSIVE DESPITE SCHEDULED BP MEDICATIONS. PT REMAINS ASYMPTOMATIC. PT WORKED W/ PHYSICAL THERAPY THIS SHIFT, SEE THERAPY NOTE. NO OTHER ACUTE CHANGES. CALL LIGHT WITHIN REACH AND ABLE TO MAKE NEEDS KNOWN.
[2024-09-19] VITALS (21 sets, daily range): BP systolic 79–191; BP diastolic 44–74
[2024-09-19] MEDS ORDERED: HydrALAZINE HCl 20 MG / ML 1ML Vial IV PRN (02:40)
--- NOTE | 2024-09-19 04:14 | NUR ---
FINGERNAIL SCULPTOR SUMMARY BP ELEVATED, OTHERWISE VSS. RECEIVED ANTIHYPERTENSIVE, BP DROPPING TO WNL - SEE DOC FLOW SHEETS. ASYMPTOMATIC. ALERT AND ORIENTED. HAS RIGHT CHEST PERMACATH FOR DIALYSIS. HOB ELEVATED FOR COMFORT. HAS BEEN RESTING QUIETLY WITH FEW INTERRUPTIONS. ABLE TO REPOSITION SELF IN BED FOR COMFORT, ASSISTED NEEDED. CALL LIGHT IN REACH, RAILS UP X 2 AND BED IN LOW POSITION FOR SAFETY. WILL CONT TO MONITOR
--- NOTE | 2024-09-19 16:58 | NUR ---
DISCHARGE NOTE PT D/C TO SNF AT 1620. PT A&OX4, VSS, TOLERATING PO, VOIDING, AND DENIED PAIN. LIFT USED TO PUT PT IN W/C. DISCHARGE PACKET GIVEN TO TRANSPORT. BELONGINGS WERE RETURNED. PT'S DAUGHTER NOTIFIED OF D/C. PT ESCOURTED OUT VIA W/C BY TRANSPORT TO RETURN BACK TO [facility].
--- NOTE | 2024-09-19 17:42 | NUR ---
THIS RN GAVE REPORT TO NABEEL ERAZO FROM [facility].
== END 2024-09-19 16:43 | DRG 871 ==
LOC: ER 01:02 → MEDS 01:03 → ENPENDDIS 09-15 13:20 → MEDS 09-16 15:20
PROVIDERS: Emergency Medicine; Family Medicine; Internal Medicine; ADMIT Internal Medicine
PROC: 5A1D70Z Performance of Urinary Filtration, Intermittent, Less than 6 Hours Per Day (ICD-10-PCS; principal; 2024-09-14)
PROC: 3E03329 Introduction of Other Anti-infective into Peripheral Vein, Percutaneous Approach (ICD-10-PCS; 2024-09-14)
DX: A41.51 Sepsis due to Escherichia coli [E. coli] (principal); G92.8 Other toxic encephalopathy; N18.6 End stage renal disease; E87.1 Hypo-osmolality and hyponatremia; I12.0 Hypertensive chronic kidney disease with stage 5 chronic kidney disease or end stage renal disease; N39.0 Urinary tract infection, site not specified; Z16.20 Resistance to unspecified antibiotic; Z68.41 Body mass index [BMI] 40.0-44.9, adult; R65.20 Severe sepsis without septic shock; Z99.2 Dependence on renal dialysis; E11.22 Type 2 diabetes mellitus with diabetic chronic kidney disease; L89.301 Pressure ulcer of unspecified buttock, stage 1; Z87.81 Personal history of (healed) traumatic fracture; D63.1 Anemia in chronic kidney disease; Z79.899 Other long term (current) drug therapy; F32.9 Major depressive disorder, single episode, unspecified; E78.5 Hyperlipidemia, unspecified; E66.01 Morbid (severe) obesity due to excess calories; M19.90 Unspecified osteoarthritis, unspecified site; Z86.73 Personal history of transient ischemic attack (TIA), and cerebral infarction without residual deficits; J44.9 Chronic obstructive pulmonary disease, unspecified; Z90.710 Acquired absence of both cervix and uterus; Z98.890 Other specified postprocedural states; Z66 Do not resuscitate; Z88.5 Allergy status to narcotic agent; Z91.040 Latex allergy status; Z88.8 Allergy status to other drugs, medicaments and biological substances; Z79.82 Long term (current) use of aspirin; Z79.01 Long term (current) use of anticoagulants
CPT/HCPCS: 36415; 80048; 80053; 80069; 82803; 82947; 83540; 83550; 83605; 83735; 85025; 85027; 87040; 96374; 97110; 97162; 97530; 99285-25; A9270; G0378; J0295; J0360; J0696; J7030; J7050; Q5106